=== PATIENT | male | born 1980 | race Caucasian/White ===

== ENCOUNTER 2018-08-11 12:42 | Emergency (ER) | payer MEDICAID, SELFPAY ==
[2018-08-11] VITALS (17 sets, daily range): BP systolic 130–204; BP diastolic 66–164; PULSE 72–109; RESP 10–33; TEMP 36.5–37.1; O2SAT 92–96
[2018-08-11] MEDS: LORazepam 2 MG/ML VIAL ×3 (12:45→13:06)
--- NOTE | 2018-08-11 12:45 | DI.RAD_ITS ---
SYMPTOMS/DIAGNOSIS: S/P FALL, ? ACUTE FRACTURE/DISEASE AP AND LATERAL CHEST: There are no prior comparison exams. The cardiac and mediastinal contours have a normal appearance. The lungs are well inflated and clear. No infiltrate, effusion or pneumothorax is seen. No rib or spine fracture is identified. IMPRESSION: Negative chest x-ray. PELVIS: There are no prior comparison exams. There are degenerative changes of both hips, left greater than right. There is spurring from the margins of the femoral head which could obscure a subcapital fracture. There is moderate joint space narrowing as well as acetabular spurring. There is mild spurring of the right acetabulum and right femoral head. IMPRESSION: Degenerative changes of both hips, left greater than right. No definite fracture is identified. If there is further clinical question, a CT could be performed.
--- NOTE | 2018-08-11 12:45 | DI.CT_ITS ---
SYMPTOMS/DIAGNOSIS: S/P FALL, SEIZURE, ? ACUTE CVA/MASS/BLEED NONCONTRAST HEAD CT: No intracranial hemorrhage, mass or infarct is seen. The ventricles are normal in size. There is mucosal thickening of the left frontal as well as ethmoid sinuses. There is some mucous retention at the floor of the right maxillary sinus. The mastoid air cells appear clear. IMPRESSION: Sinus disease. No acute intracranial abnormality. CT OF THE CERVICAL SPINE: There is no evidence of fracture the alignment is normal. There are degenerative disc changes. There is no prevertebral soft tissue swelling. The visualized portions of the lungs appear clear. IMPRESSION: Degenerative changes. No acute abnormality.
--- NOTE | 2018-08-11 12:48 | W.ED.GENAD ---
Discharge Plan Disposition Patient Disposition: AGAINST MEDICAL ADVICE Condition: Stable Discharge Details Chief Complaint: AMS/LOC Clinical Impression: Seizure disorder Primary Care Provider: Eugene Crain ED Provider: Renetta Mae Home Meds and New Rx's Prescriptions: Continued methadone 5 mg/5 mL Solution 125 mg PO DAILY AM RF: 0 gabapentin 600 mg Tablet 600 mg PO DAILY RF: 0 Discharge Instructions Instructions: Epilepsy (ED), Recurrent Seizures in Adults (ED) Additional Instructions: Drink plenty of fluids and get plenty of rest. Take your regular medications as directed. Call your primary care doctor tomorrow to schedule a follow-up appointment for reevaluation. Return immediately to the emergency department with any worsening or new concerning symptoms. Discharge Data Discharge Physician: Renetta Mae Medical Decision Making 38-year-old male with unknown medical history and questionable history of alcohol and drug use per coworker who presented for multiple seizures in the parking lot. Upon arrival of ED staff, patient was breathing but unresponsive. Patient shortly became alert and was able to ambulate with assistance out of the car and onto the wheelchair. Patient tracks with eyes but does not answer any questions or follow commands. Heart rate tachycardic 100s. Blood pressure hypertensive. Superficial abrasion noted to forehead. No other obvious trauma noted. Moving all extremities. Concern for alcohol withdrawal seizure, acute drug intoxication, brain mass, electrolyte abnormality. Patient is flailing around in room and removing his blood pressure cuff and will not remain still for IV. Patient given 1 mg of Ativan IM and still restless and moving around stretcher. Given another 1 mg Ativan IM. Will continue to attempt IV, labs, alcohol, UDS, EKG, chest x-ray, pelvis x-ray and CT head and cervical spine. 1300 -- Pt attempting to take off leads and removing BP cuff. He became more alert after 3rd dose ativan, and now refusing to stay. Patient is unable to state the year and does not appear to have capacity to make decisions. Discussed with patient that I will attempt to get senior systems analyst and restrain him, as it is not safe for him to leave. Patient is now agreeable to IV. 1445 --labs and imaging reviewed. White blood cell count 13. Normal electrolytes. Troponin negative. Urinalysis negative. Negative salicylates, acetaminophen, alcohol. UDS notes methadone and THC. CT head, C-spine, chest x-ray negative. Pelvis x-ray read as a questionable lucency subcapital region which could represent subcapital femoral neck fracture. Patient has no evidence of trauma on exam, full range of motion and no tenderness to palpation of hips and he was able to ambulate and transfer from the wheelchair so does not appear clinically consistent with a femoral neck fracture. Patient is now more awake and alert and able to answer more questions. He states he has been taking gabapentin for the last month for nerve pains in his legs related to previous fractures. He states he normally takes 600 mg of gabapentin 3 times a day. States he took an extra 600 mg today because he was feeling tired. He states he had a similar history of a seizure a few weeks ago after taking too much gabapentin for which he was seen and admitted to [facility] [place] [facility]. Will consult with [facility] neurology to discuss whether gabapentin could be the cause of his seizures. 1530 --girlfriend now present here and patient is requesting to leave. Discussed with patient that I have not yet spoken with [facility] neurology for recommendations. Patient is refusing to stay. Patient demonstrates capacity to make decisions. The risks of and disability due to a serious pathology were discussed and he understands and would still like to leave. AMA form signed. Patient is instructed to follow-up with the primary care doctor for reevaluation and to return here if worse. Able to obtain records from [facility] which noted that patient was admitted there on 07/20/2018 for seizure-like activity. Patient had stated at that time he taken more gabapentin than usual. The record had noted that patient has a history of right lower extremity neuropathy status post right tibial plateau fracture repair in 2014 and had been started on gabapentin for this. He had tested positive for cocaine at that time and thought the seizures could be in the context of cocaine use. He had been recommended to be transferred to [facility] for EEG monitoring but had refused. Medical Records Medical records reviewed: Yes I reviewed the patient's medical records. Imaging Data Radiologic Study: Radiologist's impression: XR Chest, 2 Views EXAM DATE/TIME: 08/11/2018 12:48 PM CLINICAL HISTORY: 38 years old, male; Injury or trauma; Fall; Initial encounter; Blunt trauma (contusions or hematomas); Additional info: S/P fall, seizure, R/O acute cva/mass/bleed TECHNIQUE: Imaging protocol: XR of the chest, 2 views. COMPARISON: No relevant prior studies available. FINDINGS: Lungs: Unremarkable. No consolidation. Pleural space: Unremarkable. No pleural effusion. No pneumothorax. Heart/Mediastinum: Unremarkable. No cardiomegaly. Bones/joints: Unremarkable. IMPRESSION: No acute findings. Radiologic Study #2: Radiologist's impression: XR Pelvis, 1 or 2 Views EXAM DATE/TIME: 08/11/2018 12:48 PM CLINICAL HISTORY: 38 years old, male; Injury or trauma; Fall; Initial encounter; Blunt trauma (contusions or hematomas); Right; Hip; Additional info: S/P fall, seizure, R/O acute cva/mass/bleed TECHNIQUE: Imaging protocol: XR pelvis, 1 or 2 views COMPARISON: No relevant prior studies available. FINDINGS: Bones/joints: Degenerative changes in both hips Subtle lucency the most subcapital region of the right hip. This could represent mild subcapital femoral neck fracture.. Soft tissues: Normal. IMPRESSION: Subtle lucency the most subcapital region of the right hip. This could represent mild subcapital femoral neck fracture.. Radiologic Study #3: Radiologist's impression: CT Head Without Contrast EXAM DATE/TIME: 08/11/2018 12:48 PM CLINICAL HISTORY: 38 years old, male; Signs and symptoms; Other: S/P fall, seizure, R/O acute cva/mass/bleed TECHNIQUE: Imaging protocol: Axial computed tomography images of the head without contrast. Coronal and sagittal reformatted images were created and reviewed. Radiation optimization: All CT scans at this facility use at least one of these dose optimization techniques: automated exposure control; mA and/or kV adjustment per patient size (includes targeted exams where dose is matched to clinical indication); or iterative reconstruction. COMPARISON: No relevant prior studies available. FINDINGS: Brain: Normal. No hemorrhage. Unremarkable white matter. No mass effect. Ventricles: Normal. No ventriculomegaly. Bones/joints: Discontinuities in the nasal bones may represent acute or chronic nasal fractures. Compression. Sinuses: Mucosal thickening in the maxillary sinuses and ethmoid sinuses and frontal sinuses may represent sinusitis. Mastoid air cells: Visualized mastoid air cells are well aerated. No mastoid effusion. Soft tissues: Unremarkable. IMPRESSION: Mucosal thickening in the maxillary sinuses and ethmoid sinuses and frontal sinuses may represent sinusitis. CT Cervical Spine Without Contrast EXAM DATE/TIME: 08/11/2018 12:48 PM CLINICAL HISTORY: 38 years old, male; Signs and symptoms; Other: S/P fall, seizure, R/O acute cva/mass/bleed TECHNIQUE: Imaging protocol: Axial computed tomography images of the cervical spine without contrast. Coronal and sagittal reformatted images were created and reviewed. Radiation optimization: All CT scans at this facility use at least one of these dose optimization techniques: automated exposure control; mA and/or kV adjustment per patient size (includes targeted exams where dose is matched to clinical indication); or iterative reconstruction. COMPARISON: No relevant prior studies available. FINDINGS: Vertebrae: No acute fracture of the cervical spine. No subluxation or dislocation of the cervical spine. Anterior osteophyte formation C5 and C6 Degenerative changes in the facets at multiple levels Degenerative changes at C1/C2 Discs/Spinal canal/Neural foramina: Posterior osteophyte formation C5-C7 Soft tissues: Unremarkable. Thyroid: The thyroid is unremarkable Lungs: Lung apices are normal. Other findings: Mucosal thickening in the maxillary sinuses may represent sinusitis IMPRESSION: 1. No acute fracture of the cervical spine. 2. No subluxation or dislocation of the cervical spine. ECG Data Attestation: I personally reviewed and interpreted this ECG (s) as follows: Interpretation: Rate of 80, sinus, no acute ST elevation or depression. QTc 471. QRS 96. HPI General Mode of arrival: ambulatory. Date/Time Provider Initiated Documentation: 08/11/18 12:44. Limitations to Documentation: altered mental status. Information obtained by: family (friend/coworker). HPI Narrative: Pt is a 38yo M who presented in the parking lot for multiple seizures. Coworker/friend who brought patient to the ED stated that he was standing outside and began seizing and suddenly dropped to the ground. He was able to wake up and get into a van and on the way here began seizing again. Coworker states that his first seizure he thinks lasted approximately 10 minutes, and the second seizure approximately 10 minutes as well. He denies any known alcohol or drug use today but states he has a previous history of this. Patient is unable to obtain history as he is agitated and appears postictal. Related Data Home Medications Medication Instructions Recorded Confirmed gabapentin 600 mg PO DAILY 08/11/18 08/11/18 methadone 125 mg PO DAILY AM 08/11/18 08/11/18 Allergies Allergy/AdvReac Type Severity Reaction Status Date / Time No Known Allergies Allergy Unverified 08/11/18 13:01 Review of Systems Review of Systems All systems reviewed & are unremarkable except as noted in HPI and below PFSH Medical History Seizure (Acute) Surgical History History of surgery on extremity (Acute) Social History Smoking/Tobacco Use Status: Current every day Alcohol Intake: former Details: Last use 8 months ago Substance use type: former substance user, crack/cocaine, heroin and IV drugs Details: last use 2016 Exam Const General: combative and other (agitated ) HENMT Head: normal to inspection Face and sinus: normal facial exam Eyes General: appearance normal, both eyes and all related structures Pupils: PERRL EOM: EOM intact bilaterally Neck Neck: normal visual inspection and No submandibular swelling Lymphatic: no lymphadenopathy noted Chest Chest: normal inspection of the chest and no tenderness Resp Effort & Inspection: normal respiratory effort and able to speak in complete sentences Auscultation: clear to auscultation bilaterally Cardio Rate: regular rate Rhythm: regular rhythm GI Inspection: normal to inspection Palpation: soft, not firm, not rigid and nontender Auscultation: normal bowel sounds Back/Spine/Pelvis Thoracic/Lumbar Spine: thoracic and lumbar spine normal to inspection Pelvis: no pain with anterior-posterior compression Skin General skin exam: no rashes or lesions noted Neuro General: awake Speech: speech normal Motor: muscle tone normal throughout Sensory Exam: no sensory deficits noted Extrem General: normal to inspection, full ROM and no edema Psych Appearance: grossly normal Mental Status: mental status grossly normal Speech and Movement: speech and movement normal Affect: normal affect
--- NOTE | 2018-08-11 12:52 | ED.GENADUL_ITS ---
Discharge Plan Disposition Patient Disposition: AGAINST MEDICAL ADVICE Condition: Stable Discharge Details Chief Complaint: AMS/LOC Clinical Impression: Seizure disorder Primary Care Provider: Eugene Crain ED Provider: Renetta Mae Home Meds and New Rx's Prescriptions: Continued methadone 5 mg/5 mL Solution 125 mg PO DAILY AM RF: 0 gabapentin 600 mg Tablet 600 mg PO DAILY RF: 0 Discharge Instructions Instructions: Epilepsy (ED), Recurrent Seizures in Adults (ED) Additional Instructions: Drink plenty of fluids and get plenty of rest. Take your regular medications as directed. Call your primary care doctor tomorrow to schedule a follow-up appointment for reevaluation. Return immediately to the emergency department with any worsening or new concerning symptoms. Discharge Data Discharge Physician: Renetta Mae Medical Decision Making 38-year-old male with unknown medical history and questionable history of alcohol and drug use per coworker who presented for multiple seizures in the parking lot. Upon arrival of ED staff, patient was breathing but unresponsive. Patient shortly became alert and was able to ambulate with assistance out of the car and onto the wheelchair. Patient tracks with eyes but does not answer any questions or follow commands. Heart rate tachycardic 100s. Blood pressure hypertensive. Superficial abrasion noted to forehead. No other obvious trauma noted. Moving all extremities. Concern for alcohol withdrawal seizure, acute drug intoxication, brain mass, electrolyte abnormality. Patient is flailing around in room and removing his blood pressure cuff and will not remain still for IV. Patient given 1 mg of Ativan IM and still restless and moving around stretcher. Given another 1 mg Ativan IM. Will continue to attempt IV, labs, alcohol, UDS, EKG, chest x-ray, pelvis x-ray and CT head and cervical spine. 1300 -- Pt attempting to take off leads and removing BP cuff. He became more alert after 3rd dose ativan, and now refusing to stay. Patient is unable to state the year and does not appear to have capacity to make decisions. Discussed with patient that I will attempt to get nursing home manager and restrain him, as it is not safe for him to leave. Patient is now agreeable to IV. 1445 --labs and imaging reviewed. White blood cell count 13. Normal electrolytes. Troponin negative. Urinalysis negative. Negative salicylates, acetaminophen, alcohol. UDS notes methadone and THC. CT head, C-spine, chest x-ray negative. Pelvis x-ray read as a questionable lucency subcapital region which could represent subcapital femoral neck fracture. Patient has no evidence of trauma on exam, full range of motion and no tenderness to palpation of hips and he was able to ambulate and transfer from the wheelchair so does not appear clinically consistent with a femoral neck fracture. Patient is now more awake and alert and able to answer more questions. He states he has been taking gabapentin for the last month for nerve pains in his legs related to previous fractures. He states he normally takes 600 mg of gabapentin 3 times a day. States he took an extra 600 mg today because he was feeling tired. He states he had a similar history of a seizure a few weeks ago after taking too much gabapentin for which he was seen and admitted to [facility]. Will consult with [facility] neurology to discuss whether gabapentin could be the cause of his seizures. 1530 --girlfriend now present here and patient is requesting to leave. Discussed with patient that I have not yet spoken with [facility] neurology for recommendations. Patient is refusing to stay. Patient demonstrates capacity to make decisions. The risks of and disability due to a serious pathology were discussed and he understands and would still like to leave. AMA form signed. Patient is instructed to follow-up with the primary care doctor for reevaluation and to return here if worse. Able to obtain records from [facility] which noted that patient was admitted there on 07/20/2018 for seizure-like activity. Patient had stated at that time he taken more gabapentin than usual. The record had noted that patient has a history of right lower extremity neuropathy status post right tibial plateau fracture repair in 2014 and had been started on gabapentin for this. He had tested positive for cocaine at that time and thought the seizures could be in the context of cocaine use. He had been recommended to be transferred to [facility] for EEG monitoring but had refused. Medical Records Medical records reviewed: Yes I reviewed the patient's medical records. Imaging Data Radiologic Study: Radiologist's impression: XR Chest, 2 Views EXAM DATE/TIME: 08/11/2018 12:48 PM CLINICAL HISTORY: 38 years old, male; Injury or trauma; Fall; Initial encounter; Blunt trauma (contusions or hematomas); Additional info: S/P fall, seizure, R/O acute cva/mass/bleed TECHNIQUE: Imaging protocol: XR of the chest, 2 views. COMPARISON: No relevant prior studies available. FINDINGS: Lungs: Unremarkable. No consolidation. Pleural space: Unremarkable. No pleural effusion. No pneumothorax. Heart/Mediastinum: Unremarkable. No cardiomegaly. Bones/joints: Unremarkable. IMPRESSION: No acute findings. Radiologic Study #2: Radiologist's impression: XR Pelvis, 1 or 2 Views EXAM DATE/TIME: 08/11/2018 12:48 PM CLINICAL HISTORY: 38 years old, male; Injury or trauma; Fall; Initial encounter; Blunt trauma (contusions or hematomas); Right; Hip; Additional info: S/P fall, seizure, R/O acute cva/mass/bleed TECHNIQUE: Imaging protocol: XR pelvis, 1 or 2 views COMPARISON: No relevant prior studies available. FINDINGS: Bones/joints: Degenerative changes in both hips Subtle lucency the most subcapital region of the right hip. This could represent mild subcapital femoral neck fracture.. Soft tissues: Normal. IMPRESSION: Subtle lucency the most subcapital region of the right hip. This could represent mild subcapital femoral neck fracture.. Radiologic Study #3: Radiologist's impression: CT Head Without Contrast EXAM DATE/TIME: 08/11/2018 12:48 PM CLINICAL HISTORY: 38 years old, male; Signs and symptoms; Other: S/P fall, seizure, R/O acute cva/mass/bleed TECHNIQUE: Imaging protocol: Axial computed tomography images of the head without contrast. Coronal and sagittal reformatted images were created and reviewed. Radiation optimization: All CT scans at this facility use at least one of these dose optimization techniques: automated exposure control; mA and/or kV adjustment per patient size (includes targeted exams where dose is matched to clinical indication); or iterative reconstruction. COMPARISON: No relevant prior studies available. FINDINGS: Brain: Normal. No hemorrhage. Unremarkable white matter. No mass effect. Ventricles: Normal. No ventriculomegaly. Bones/joints: Discontinuities in the nasal bones may represent acute or chronic nasal fractures. Compression. Sinuses: Mucosal thickening in the maxillary sinuses and ethmoid sinuses and frontal sinuses may represent sinusitis. Mastoid air cells: Visualized mastoid air cells are well aerated. No mastoid effusion. Soft tissues: Unremarkable. IMPRESSION: Mucosal thickening in the maxillary sinuses and ethmoid sinuses and frontal sinuses may represent sinusitis. CT Cervical Spine Without Contrast EXAM DATE/TIME: 08/11/2018 12:48 PM CLINICAL HISTORY: 38 years old, male; Signs and symptoms; Other: S/P fall, seizure, R/O acute cva/mass/bleed TECHNIQUE: Imaging protocol: Axial computed tomography images of the cervical spine without contrast. Coronal and sagittal reformatted images were created and reviewed. Radiation optimization: All CT scans at this facility use at least one of these dose optimization techniques: automated exposure control; mA and/or kV adjustment per patient size (includes targeted exams where dose is matched to clinical indication); or iterative reconstruction. COMPARISON: No relevant prior studies available. FINDINGS: Vertebrae: No acute fracture of the cervical spine. No subluxation or dislocation of the cervical spine. Anterior osteophyte formation C5 and C6 Degenerative changes in the facets at multiple levels Degenerative changes at C1/C2 Discs/Spinal canal/Neural foramina: Posterior osteophyte formation C5-C7 Soft tissues: Unremarkable. Thyroid: The thyroid is unremarkable Lungs: Lung apices are normal. Other findings: Mucosal thickening in the maxillary sinuses may represent sinusitis IMPRESSION: 1. No acute fracture of the cervical spine. 2. No subluxation or dislocation of the cervical spine. ECG Data Attestation: I personally reviewed and interpreted this ECG (s) as follows: Interpretation: Rate of 80, sinus, no acute ST elevation or depression. QTc 471. QRS 96. HPI General Mode of arrival: ambulatory . Date/Time Provider Initiated Documentation: 08/11/18 12:44 . Limitations to Documentation: altered mental status . Information obtained by: family (friend/coworker) . HPI Narrative: Pt is a 38yo M who presented in the parking lot for multiple seizures. Coworker/friend who brought patient to the ED stated that he was standing outside and began seizing and suddenly dropped to the ground. He was able to wake up and get into a van and on the way here began seizing again. Coworker states that his first seizure he thinks lasted approximately 10 minutes, and the second seizure approximately 10 minutes as well. He denies any known alcohol or drug use today but states he has a previous history of this. Patient is unable to obtain history as he is agitated and appears postictal. Related Data Home Medications Medication Instructions Recorded Confirmed gabapentin 600 mg PO DAILY 08/11/18 08/11/18 methadone 125 mg PO DAILY AM 08/11/18 08/11/18 Allergies Allergy/AdvReac Type Severity Reaction Status Date / Time No Known Allergies Allergy Unverified 08/11/18 13:01 Review of Systems Review of Systems All systems reviewed & are unremarkable except as noted in HPI and below PFSH Medical History Seizure (Acute) Surgical History History of surgery on extremity (Acute) Social History Smoking/Tobacco Use Status: Current every day Alcohol Intake: former Details: Last use 8 months ago Substance use type: former substance user, crack/cocaine, heroin and IV drugs Details: last use 2016 Exam Const General: combative and other (agitated ) HENMT Head: normal to inspection Face and sinus: normal facial exam Eyes General: appearance normal, both eyes and all related structures Pupils: PERRL EOM: EOM intact bilaterally Neck Neck: normal visual inspection and No submandibular swelling Lymphatic: no lymphadenopathy noted Chest Chest: normal inspection of the chest and no tenderness Resp Effort & Inspection: normal respiratory effort and able to speak in complete sentences Auscultation: clear to auscultation bilaterally Cardio Rate: regular rate Rhythm: regular rhythm GI Inspection: normal to inspection Palpation: soft, not firm, not rigid and nontender Auscultation: normal bowel sounds Back/Spine/Pelvis Thoracic/Lumbar Spine: thoracic and lumbar spine normal to inspection Pelvis: no pain with anterior-posterior compression Skin General skin exam: no rashes or lesions noted Neuro General: awake Speech: speech normal Motor: muscle tone normal throughout Sensory Exam: no sensory deficits noted Extrem General: normal to inspection, full ROM and no edema Psych Appearance: grossly normal Mental Status: mental status grossly normal Speech and Movement: speech and movement normal Affect: normal affect
--- NOTE | 2018-08-11 13:09 | NUR.NOTE ---
2 mg of ativan given by yunior romero from a ER department override. 1 mg given pulled for PT
[2018-08-11 13:33] LABS: Abs Immature Grans 0.02 k/cumm (0.0-0.09); Absolute Basophil Count 0.03 k/cumm (0.0-0.2); Absolute Eosinophil Count 0.08 k/cumm (0.0-0.7); Absolute Lymphocyte Count 1.54 k/cumm (1.2-3.4); Absolute Monocyte Count 0.64 k/cumm (0.11-0.7); Absolute Neutrophil Count 11.66 k/cumm (1.2-6.7); Basophils % 0.2; Eosinophils % 0.6; HCT 39.8 % (40.0-50.0); HGB 13.6 g/dL (13.5-17.5); Immature Grans % 0.1; Mean Corp. HGB Concentration 34.2 g/dL (32.0-36.0); Mean Corpuscular Volume 90.7 fL (80-95); Mean Platelet Volume 10.7 fL (8.0-11.0); Monocytes % 4.6; Neutrophils % 83.5; Platelet Count 179 x1000/uL (130-400); RBC 4.39 m/cumm (4.50-6.00); RBC Distribution Width 13.6 % (11.8-14.1); White Blood Cell Count 13.97 k/cumm (4.4-10.8)
[2018-08-11 13:47] LABS: ALT 43 U/L (12-78); AST 40 U/L (15-37); Albumin 3.5 g/dL (3.4-5.0); Alkaline Phosphatase 87 U/L (46-116); Anion Gap 12.2 mmol/L (3-11); BUN 15 mg/dL (7-18); Bilirubin, Total 0.2 mg/dL (0.2-1.0); CO2 22.8 mmol/L (21.0-32.0); Calcium 8.5 mg/dL (8.5-10.1); Chloride 102 mmol/L (98-107); Glucose 104 mg/dL (70-100); Magnesium 2.4 mg/dL (1.8-2.4); Potassium 3.5 mmol/L (3.5-5.1); Sodium 137 mmol/L (136-145); Total Protein 7.5 g/dL (6.4-8.2); Troponin I 0.02 ng/mL (0.00-0.06)
[2018-08-11] MEDS: Normal Saline 1,000 ML 1000 ML IV (13:58)
[2018-08-11 14:02] LABS: ETHANOL BLOOD < 3.0 mg/dL (<3)
[2018-08-11 14:04] LABS: Acetaminophen < 2 ug/mL (10-30); Salicylate 3.8 mg/dL (2.8-20.0)
--- NOTE | 2018-08-11 14:27 | DI.VRAD_ITS ---
EXAM: XR Chest, 2 Views EXAM DATE/TIME: 08/11/2018 12:48 PM CLINICAL HISTORY: 38 years old, male; Injury or trauma; Fall; Initial encounter; Blunt trauma (contusions or hematomas); Additional info: S/P fall, seizure, R/O acute cva/mass/bleed TECHNIQUE: Imaging protocol: XR of the chest, 2 views. COMPARISON: No relevant prior studies available. FINDINGS: Lungs: Unremarkable. No consolidation. Pleural space: Unremarkable. No pleural effusion. No pneumothorax. Heart/Mediastinum: Unremarkable. No cardiomegaly. Bones/joints: Unremarkable. IMPRESSION: No acute findings. Dictated and Authenticated by: Vinny John MD. Ordering:NOE Jackson MD
--- NOTE | 2018-08-11 14:28 | DI.VRAD_ITS ---
EXAM: XR Pelvis, 1 or 2 Views EXAM DATE/TIME: 08/11/2018 12:48 PM CLINICAL HISTORY: 38 years old, male; Injury or trauma; Fall; Initial encounter; Blunt trauma (contusions or hematomas); Right; Hip; Additional info: S/P fall, seizure, R/O acute cva/mass/bleed TECHNIQUE: Imaging protocol: XR pelvis, 1 or 2 views COMPARISON: No relevant prior studies available. FINDINGS: Bones/joints: Degenerative changes in both hips Subtle lucency the most subcapital region of the right hip. This could represent mild subcapital femoral neck fracture.. Soft tissues: Normal. IMPRESSION: Subtle lucency the most subcapital region of the right hip. This could represent mild subcapital femoral neck fracture.. Dictated and Authenticated by: Vinny John MD. Ordering:NOE Jackson MD
--- NOTE | 2018-08-11 14:32 | DI.VRAD_ITS ---
EXAM: CT Head Without Contrast EXAM DATE/TIME: 08/11/2018 12:48 PM CLINICAL HISTORY: 38 years old, male; Signs and symptoms; Other: S/P fall, seizure, R/O acute cva/mass/bleed TECHNIQUE: Imaging protocol: Axial computed tomography images of the head without contrast. Coronal and sagittal reformatted images were created and reviewed. Radiation optimization: All CT scans at this facility use at least one of these dose optimization techniques: automated exposure control; mA and/or kV adjustment per patient size (includes targeted exams where dose is matched to clinical indication); or iterative reconstruction. COMPARISON: No relevant prior studies available. FINDINGS: Brain: Normal. No hemorrhage. Unremarkable white matter. No mass effect. Ventricles: Normal. No ventriculomegaly. Bones/joints: Discontinuities in the nasal bones may represent acute or chronic nasal fractures. Compression. Sinuses: Mucosal thickening in the maxillary sinuses and ethmoid sinuses and frontal sinuses may represent sinusitis. Mastoid air cells: Visualized mastoid air cells are well aerated. No mastoid effusion. Soft tissues: Unremarkable. IMPRESSION: Mucosal thickening in the maxillary sinuses and ethmoid sinuses and frontal sinuses may represent sinusitis. EXAM: CT Cervical Spine Without Contrast EXAM DATE/TIME: 08/11/2018 12:48 PM CLINICAL HISTORY: 38 years old, male; Signs and symptoms; Other: S/P fall, seizure, R/O acute cva/mass/bleed TECHNIQUE: Imaging protocol: Axial computed tomography images of the cervical spine without contrast. Coronal and sagittal reformatted images were created and reviewed. Radiation optimization: All CT scans at this facility use at least one of these dose optimization techniques: automated exposure control; mA and/or kV adjustment per patient size (includes targeted exams where dose is matched to clinical indication); or iterative reconstruction. COMPARISON: No relevant prior studies available. FINDINGS: Vertebrae: No acute fracture of the cervical spine. No subluxation or dislocation of the cervical spine. Anterior osteophyte formation C5 and C6 Degenerative changes in the facets at multiple levels Degenerative changes at C1/C2 Discs/Spinal canal/Neural foramina: Posterior osteophyte formation C5-C7 Soft tissues: Unremarkable. Thyroid: The thyroid is unremarkable Lungs: Lung apices are normal. Other findings: Mucosal thickening in the maxillary sinuses may represent sinusitis IMPRESSION: 1. No acute fracture of the cervical spine. 2. No subluxation or dislocation of the cervical spine. Dictated and Authenticated by: Vinny John MD. Ordering:NOE Jackson MD
--- NOTE | 2018-08-11 14:43 | NUR.NOTE ---
pt has become alert and oriented x3. he has called his brother and plans to get a ride home . he is drinking gingerale and still has his IVF infusing. Nursing Note:
[2018-08-11 14:45] LABS: Bilirubin Negative (Negative); Blood Negative (Negative); Clarity Clear; Glucose Negative (Negative); Ketones Negative (Negative); Leukocyte Esterase Negative (Negative); Nitrite Negative (Negative); Specific Gravity 1.025 (1.005-1.025); Urobilinogen 0.2 EU/dL (Up TO 0.2); pH 5.5 (5-8)
[2018-08-11 14:53] LABS: Bacteria Few HPF (Negative); C & S Indicated? No; Casts Negative LPF (Negative); Crystals Negative HPF (Negative); Epithelial Cells Rare HPF (Negative); Mucus Trace (Negative); RBC 0-2 (0-2); WBC 0-2 HPF (0-5)
[2018-08-11 14:55] LABS: *AMPHETAMINES SCREEN URINE Negative (Negative); *BARBITURATES SCREEN URINE Negative (Negative); *BENZODIAZEPINES SCREEN URINE Negative (Negative); Cannabinoids THC POSITIVE (Negative); Cocaine Screen,Urine Negative (Negative); METHADONE URINE SCREEN POSITIVE (Negative); OPIATES URINE SCREEN Negative (Negative)
[2018-08-11 14:56] LABS: Tricyclic Antidepressants Negative (Negative)
--- NOTE | 2018-08-11 15:19 | NUR.NOTE ---
pt has aggreed to remain in his room untill his brother arrives from [place] to get him . he left me leave his IV in tho complete the fluid that hes run slowly due to him bending his arm while he sleeps . he is partialy dressed and is resting on the stretcher . Nursing Note:
== END 2018-08-11 15:43 | disposition left against medical advice (07) ==
PROVIDERS: Emergency Provider Physician Assistant; PCP Family Medicine
DX: R56.9 Unspecified convulsions (principal); R00.0 Tachycardia, unspecified
CPT/HCPCS: 36415; 80053; 80307; 93005; 96361; 96374; 96375; 99285; 70450; 71046; 72125; 72170; 80320; 80329; 81003; 81015; 83735; 84484; 85025; 93010; J2060; L0172

== ENCOUNTER 2024-08-18 03:42 | Inpatient (IN) | payer MEDICAID, SELFPAY ==
[2024-08-18] VITALS (231 sets, daily range): BP systolic 73–161; BP diastolic 27–94; PULSE 56–126; RESP 5–25; TEMP 35.8–37.7; O2SAT 63–100
--- NOTE | 2024-08-18 | DI.RAD_ITS ---
Exam(s) XR PORTABLE CHEST AP EXAM: XR PORTABLE CHEST AP CLINICAL HISTORY: NG tube TECHNIQUE: 2D digital imaging was performed. COMPARISON: CT CT CHEST/ABD/PEL W from 08/18/2024 FINDINGS: The nasogastric tube has been advanced with the side port hole within the stomach. A right central venous line has been inserted with the tip at the lower SVC. LUNGS: Clear. No pleural abnormality seen. HEART: Normal size. AORTA: Normal diameter. BONES: Unremarkable for age. Soft tissues: Unremarkable. IMPRESSION: Status post placement of central line. Nasogastric tube has been advanced into the stomach. The preliminary [facility] report was reviewed. DATA REPOSITORY: RADIATION DOSE DELIVERED:
--- NOTE | 2024-08-18 03:30 | RT.EKG_ITS ---
APPROVED REPORT Exam: Resting ECG Reason for Exam: OVERDOSE Patient Location: E HR:110 bpm ECG Measurements Heart Rate 110 AXIS ME 146 P 138 QRSd 139 QRS 99 QT 452 T 48 QTc 613 Conclusion Sinus or ectopic atrial tachycardia...P axis (-45,135), rate> 99 Nonspecific intraventricular conduction delay...QRSd >115mS, not LBBB/RBBB ST elev, probable normal early repol pattern...ST elevation, age<55 Prolonged QT interval...QTc >500mS I have reviewed and interpreted ECG and agree with software generated interpretation.
--- NOTE | 2024-08-18 03:45 | DI.CT_ITS ---
Exam(s) CT HEAD WO EXAM: CT HEAD WO CLINICAL HISTORY: drug OD. TECHNIQUE: Imaging Protocol: Axial computed tomography images with coronal and sagittal reformatted images were created and reviewed COMPARISON: CT CT HEAD CERVICAL SPINE WO from 08/11/2018 FINDINGS: Ventricles and Extra axial spaces: Normal in size and morphology for the patient's age. Hemorrhage: None. Cerebral parenchyma: No evidence of acute infarct or mass. Midline shift: None. Brainstem/Cerebellum: Normal. Calvarium: Normal. Visualized Paranasal sinuses:Some mucosal thickening within ethmoid sinuses and nasal cavity. Mastoids: Clear. Soft Tissues: Unremarkable. ORBITS: Unremarkable. PITUITARY: Not enlarged. IMPRESSION: No acute intracranial process. The preliminary [facility] report was reviewed. RADIATION DOSE DELIVERED: Total DLP DATA REPOSITORY: All CT scans at this facility are submitted to the National Radiology Data Registry (NRDR) Dose Index Registry (DIR) with the [employer] (A[employer]). RADIATION OPTIMIZATION: All CT scans at this facility use at least one of these dose optimization te chniques: automated exposure control; mA and/or kV adjustment per patient size (includes targeted exa ms where dose is matched to clinical indication); or iterative reconstruction.
--- NOTE | 2024-08-18 03:45 | DI.RAD_ITS ---
Exam(s) XR PORTABLE CHEST AP POST LINE EXAM: XR PORTABLE CHEST AP POST LINE CLINICAL HISTORY: intibation TECHNIQUE: 2D digital imaging was performed. COMPARISON: CR XR CHEST 2V PA LATERAL from 08/11/2018 FINDINGS: An endotracheal tube has been inserted with the tip lying above the level of the aortic arch. LUNGS: Clear. No pleural abnormality seen. HEART: Normal size. AORTA: Normal diameter. BONES: Unremarkable for age. Soft tissues: Unremarkable. IMPRESSION: Satisfactory placement of endotracheal tube. The preliminary [facility] report was reviewed. DATA REPOSITORY: RADIATION DOSE DELIVERED:
--- NOTE | 2024-08-18 03:45 | DI.CT_ITS ---
Exam(s) CT CHEST/ABD/PEL W EXAM: CT CHEST/ABD/PEL W CLINICAL HISTORY: OD, body packing, swallowed glass?. TECHNIQUE: Imaging Protocol: Axial computed tomography images with coronal and sagittal reformatted images were created and reviewed. Computer aided detection (CAD) was utilized. CONTRAST MATERIAL: Intravenous: Omnipaque 350 Contrast volume:100 ml Oral: / no COMPARISON: No exams were available for comparison FINDINGS: CHEST: Mildly limited by artifact from metallic densities outside of the patient is well as arm positioning . Pulmonary parenchyma: Mild emphysematous changes at the lung apices. Patchy infiltrate versus mild s carring at right apex. Reticular infiltrates noted in the right middle and both lower lobes, infecti ous versus inflammatory. No consolidation. No dominant measurable mass. Tracheobronchial tree: Endotracheal tube in place. No bronchiectasis. No mucous plugging.No bronchi al wall thickening. Pleura: No effusion or pneumothorax. Mediastinum: Fluid in esophagus. Pulmonary arteries: No visible emboli. Cardiovascular: No pericardial effusion. Thoracic aorta non-dilated. Bones: Hemangioma in the T10 and T11 vertebral bodies. Mild compression fracture of the superior endp late of T5 appears old. Slight anterior wedging of the T9 vertebral body. Soft tissues: Unremarkable. ABDOMEN and PELVIS: Liver: Normal density. No suspicious mass. Gallbladder and biliary tract: No evidence of stones or wall thickening. No biliary dilatation. Pancreas: Multiple pancreatic calcifications. Pancreas is mildly atrophic. At 2.1 centimeter cyst i n the head of the pancreas, likely pseudocyst. No acute inflammatory process. Spleen: Normal. Kidneys: Normal size, contour and axis. No radiodense stones. No obstructive uropathy. No suspicious masses seen. Adrenal glands: No masses seen. Aorta: Abdominal portion non-dilated. Lymph nodes: Within normal limits. Soft tissues: Unremarkable. Bladder: Woo catheter is decompressing the urinary bladder. Bowel: The stomach contains a moderate quantity of fluid with air-fluid level. No gastric wall thick ening. There is an area of increased density within the fluid in the stomach which may represent ing ested foreign body. No small-bowel obstruction or bowel wall thickening. Increased quantity of stool . Peritoneal cavity: No ascites. No focal collection. No mesenteric inflammatory response. No free ai r. Bones: Degenerative changes at L5-S1 and in within both hips. Reproductive organs: Unremarkable for age. IMPRESSION: Reticulonodular densities in the lungs, infectious versus inflammatory. Clinical correlation recomme nded. Fluid within stomach additional densities may represent destined foreign body. No evidence of gastri c wall thickening or small bowel obstruction. Large quantity of stool. The preliminary [facility] report was reviewed. RADIATION DOSE DELIVERED: Total DLP DATA REPOSITORY: All CT scans at this facility are submitted to the National Radiology Data Registry (NRDR) Dose Index Registry (DIR) with the [employer] (ACR). RADIATION OPTIMIZATION: All CT scans at this facility use at least one of these dose optimization te chniques: automated exposure control; mA and/or kV adjustment per patient size (includes targeted exa ms where dose is matched to clinical indication); or iterative reconstruction.
[2024-08-18] MEDS: PROPOFOL 1,000 MG/100 ML BTL 20.64 MG IVPB ×3 (03:52→13:12)
[2024-08-18] MEDS: Rocuronium 50 MG/5 ML SYR (03:52)
[2024-08-18] MEDS: Etomidate 20 MG/10 ML VIAL (03:52)
[2024-08-18] MEDS: Lactated Ringers 1,000 ML 1000 ML IV ×2 (03:55→04:04)
[2024-08-18] MEDS: Norepinephrine in D5W 8 MG/250 ML BAG 5.625 MG IV (03:59)
[2024-08-18 04:11] LABS: Abs Immature Grans 0.03 10^3/uL (0.0-0.06); HCT 47.9 % (40.0-50.0); MCH 26.7 pg (27.0-33.0); MCHC 29.2 % (32.0-36.0); MCV 91 fL (80-95); MPV 12.1 fL (8.0-11.0); RBC 5.25 10^6/uL (4.36-5.78); RDW 14.6 % (11.8-14.1); RDW-SD 49.1 fL; WBC 9.14 10^3/uL (4.4-10.8)
--- NOTE | 2024-08-18 04:14 | DI.VRAD_ITS ---
PROCEDURE INFORMATION: Exam: XR Chest Exam date and time: 08/18/2024 4:08 AM Age: 44 years old Clinical indication: Device placement; Other: S/P intubation TECHNIQUE: Imaging protocol: Radiologic exam of the chest. Views: 1 view. COMPARISON: CR XR CHEST 2V PA LATERAL 08/11/2018 1:44 PM FINDINGS: Tubes, catheters and devices: Endotracheal tube terminates approximately 3.5 cm above the radha. Lungs: No focal consolidation seen. Pleural spaces: No large pleural effusion seen. Heart/Mediastinum: No cardiomegaly. Bones/joints: No acute abnormality. IMPRESSION: No acute findings to explain reported symptoms. Dictated and Authenticated by: Adriana Whaley MD. Orderin Niraj Magallanes MD
[2024-08-18] MEDS: Normal Saline - Diluent 50 ML VIAL IJ (04:15)
[2024-08-18] MEDS: Normal Saline Flush 10 ML SYR IVP ×3 (04:16→20:17)
[2024-08-18 04:25] LABS: INR 1.1 (0.9-1.1); PTT Activated 31.9 sec (20.6-30.2); Prothrombin Time 10.6 sec (9.1-11.1)
[2024-08-18 04:34] LABS: Bilirubin Negative (Negative); Blood Negative (Negative); Clarity Clear (Clear); Glucose Negative (Negative); Ketones Negative (Negative); Leukocyte Esterase Negative (Negative); Nitrite Negative (Negative); Specific Gravity 1.025 (1.005-1.025); Urobilinogen 0.2 mg/dL (Up to 0.2); pH 5.5 (5-8)
[2024-08-18 04:47] LABS: ALT 23 U/L (16-63); AST 30 U/L (15-37); Albumin 3.6 g/dL (3.4-5.0); Alkaline Phosphatase 89 U/L (46-116); Anion Gap 18.6 mmol/L (3-11); BUN 21 mg/dL (7-18); Bilirubin, Total 0.3 mg/dL (0.2-1.0); CO2 22.4 mmol/L (21.0-32.0); CREATININE 1.3 mg/dL (0.70-1.30); Calcium 9.6 mg/dL (8.5-10.1); Chloride 101 mmol/L (98-107); Estimated GFR 70.34 (mL/min/1.73m2); Glucose 154 mg/dL (74-106); Potassium 4.1 mmol/L (3.5-5.1); Sodium 142 mmol/L (136-145); TSH (W/Ref FT4) 9.67 uIU/mL (0.36-3.74); Total Protein 8.9 g/dL (6.4-8.2)
[2024-08-18 04:49] LABS: BE -5 mmol/L (-2-3); HCO3 22 mmol/L (22-26); pCO2 42 mmHg (35-45); pH 7.32 (7.35-7.45); pO2 85 mmHg (80-105); sO2 96 % (95-98); tCO2 20 mmol/L (23-27)
--- NOTE | 2024-08-18 04:49 | ED.GENADUL_ITS ---
Discharge Plan Disposition Patient Disposition: Admit to [facility] Discharge Details Admit Date/Time: 08/18/24 05:52 Admit Provider: Epi Beck Attending Provider: Epi Beck Primary Care Provider: Amirah Vazquez ED Provider: Elpidio Healy Discharge Data Discharge Date/Time-TO BE ENTERED AT DEPARTURE: 08/18/24 06:46 HPI General Date/Time Provider Initiated Documentation: 08/18/24 03:56 . HPI Narrative: This is a 44-year-old male with a past medical history of hepatitis C, IV drug use, previous methadone use, alcohol use, who presents today from senior living for evaluation of overdose. Patient was brought into senior living for intake, he was scanned and found to be body packing. He was then sent to an isolation room, and shortly thereafter was found eating/chewing one of the components of the body packing. Security services state that whenever he was chewing broke in his mouth and cause bleeding. He told services that it was fentanyl and cocaine, and then almost immediately became unresponsive and started having atypical movements. EMS was called and upon their arrival the patient was unresponsive with fixed and dilated pupils. They were unable to gain IV access and the patient was brought to the ER immediately. Patient gives no additional historical components. Related Data Home Medications ?Medication ?Instructions ?Recorded ?Confirmed gabapentin 600 mg tablet 600 mg PO DAILY 08/11/18 08/25/24 methadone 5 mg/5 mL oral solution 125 mg PO DAILY AM 08/11/18 08/21/24 diphenhydramine HCl 25 mg capsule 25 mg PO BID 7 days #14 caps 08/25/24 (Benadryl) potassium chloride 20 mEq 20 meq PO BID@0800,1700 #20 tabs 08/25/24 tablet,extended release(part/cryst) (Klor-Con M) Previous Rx's ?Medication ?Instructions ?Recorded diphenhydramine HCl 25 mg capsule 25 mg PO BID 7 days #14 caps 08/25/24 (Benadryl) potassium chloride 20 mEq 20 meq PO BID@0800,1700 #20 tabs 08/25/24 tablet,extended release(part/cryst) (Klor-Con M) Allergies Allergy/AdvReac Type Severity Reaction Status Date / Time No Known Allergies Allergy Unverified 08/11/18 13:01 General Stated Complaint: OD/Poison TRISTAN: 1 Exam Narrative Exam Narrative: 1.Const: Well-nourished, Well-developed, appearing stated age 2.Eyes: Pupils are dilated, right pupil demonstrates atypical asymmetry with a incomplete lower elwha of the right pupil. Pupils are round 3 mm. 3.ENT: Atraumatic external nose and ears. Moist MM. Neck: Symmetric, trachea midline, No thyromegaly. Blood is noted in the patient's mouth. Poor dentition. 4.CVS: +S1/S2, Peripheral pulses 2+ and equal in all extremities. Poor capillary refill, extremities are somewhat cyanotic 5.RESP: Labored breathing, agonal respirations. 6.GI: Soft, Nontender/Nondistended, No hepatosplenomegaly. No guarding or rebound. 7.MSK: Normocephalic/Atraumatic, Extremities w/o deformity or ttp No cyanosis or clubbing, tensed movement of extremities and jerking and twitching fashion. 8.Skin: Warm, Dry. Multiple small ulcerated lesions. 9.Neuro: Notably altered, twitching and jerking. Clenched jaw. Blood in the mouth. Unresponsive to questions and stimulation. 10.Psych: (AAO) x0 Course Vital Signs Vital signs: Vital Signs Pulse 121 H 08/18/24 03:57 Respiratory Rate 5 L 08/18/24 03:57 Blood Pressure 73/27 L 08/18/24 03:57 Pulse Oximetry 66 L 08/18/24 03:57 Pulse 121 H 08/18/24 03:57 Respiratory Rate 5 L 08/18/24 03:57 Blood Pressure 73/27 L 08/18/24 03:57 Blood Pressure Position Supine 08/18/24 03:57 Pulse Oximetry 66 L 08/18/24 03:57 Oxygen Delivery Method Non-Rebreather 08/18/24 03:57 End Tidal Co2 15 08/18/24 03:57 Lab/Test Results Lab/Test Results: Laboratory Tests Range/Units 08/18/24 08/18/24 04:02 04:13 PT (9.1-11.1) sec 10.6 INR (0.9-1.1) 1.1 APTT (20.6-30.2) sec 31.9 H VBG Lactate (<or=2.0) mmol/L 15.0 H* Urine Color (Yellow) Yellow Urine Clarity (Clear) Clear Urine pH (5-8) 5.5 Ur Specific [place] (1.005-1.025) 1.025 Urine Protein (Neg-Trace) mg/dL Negative Urine Ketones (Negative) mg/dL Negative Urine Blood (Negative) Negative Urine Nitrite (Negative) Negative Urine Bilirubin (Negative) Negative Urine Urobilinogen (Up to 0.2) mg/dL 0.2 Ur Leukocyte Esterase (Negative) Negative Urine Glucose (Negative) mg/dL Negative Procedure Airway Management Date of Procedure: 08/18/24 Time of Procedure: 05:07 Patient Consented: Emergent Case Indication: Respiratory failure and Reduced level of consciousness Provider that performed the procedure: Elpidio Healy Mallampati Class: 2 Sedation administered by provider performing procedure: Yes Sedation Given: Etomidate (20) Route of Administration: IV. Etomidate dose(mg): 20. Preparation: recording engineer applied, pulse oximeter, capnometry used, supplemental O2 applied, reversal agents at bedside, suction/airway equipment at bedside and IV secured. ASA Class: II.. Induction setup: Pt. evaluated prior to induction, Pt. Ramped, Head of Bed Elevated, Apneic Oxygenation, NRB - High Flow, Bag Valve Mask Ventilation and Rapid Sequence Induction Ultrasound: Not used Airway Type: Intubation Laryngoscopy: Atraumatic Laryngoscopy, Pre-existing tooth chip and Poor Dentition. Grade: Airway Grade: 1. Airway Blades: Glidescope 4. Endotracheal Tube: Oral and 7.5mm. Placement Confirmation: Cuff inflated with minimally occlusive pressure, Secured with commercial device, Bilateral breath sounds, ETCO2 waveform present, ETCO2 colormetric present and Depth to teeth (23) Paralytic(indicate dose given): Rocuronium Vasoactive Medication(indicate dose given): Norepinephrine Post Induction Medication Management(indicate dose given): Propofol IV Gastric Tube: Placed by Other Person Procedure Complications: None Procedure Outcome: Successful Procedure Description Note: Blood was pretty present in the patient's airway and was suctioned easily. Arterial Line Date of Procedure: 08/18/24 Time of Procedure: 05:09 Provider that performed the procedure: Elpidio Healy Indication: ABG and BP Monitoring Patient Consented: Emergent Case Standard Time Out Performed: Yes Sterility: Sterile Laterality: Left Insertion Site: Radial Arterial Line Catheter: 20G Arrow Arterial Line Procedure: Vessel accessed with needle, Vessel accessed with catheter over needle and Guidewire placed with ease Ultrasound: Used/Image Saved Number of Attempts( see previous attempts in note section): 1 Dressing: Tegaderm Applied, Chlorhexidine Dressing and BioPatch Applied Procedure Tolerated: No Complications Procedure Outcome: Successful Central Line Placement Date of Procedure: 08/18/24 Time of Procedure: 05:11 Provider that performed the procedure: Elpidio Healy Indication: Central venous access, Definitive access, Emergent access and Hypotension Patient Consented: Emergent Case Standard Time Out Performed: Yes Sterility: Sterile Laterality: Right Insertion Site: Internal Jugular (IJ) Central Line Type: Triple Lumen Catheter Insertion Procedure: Vessel accessed with needle, Vessel accessed with catheter over needle, catheter advanced, Guidewire placed with ease, Extension tubing fills with blood, then empties easily with gravity, Dermatotomy (skin chris) made with scalpel, Dilator placed without resistance, Introducer/Catheter placed without resistance, Guidewire removed and Claves placed, blood withdrawn, ports flushed and clamped Ultrasound: Used/Image Saved Number of Attempts(see previous attempts in note section): 1 Post Procedure: good blood return, all ports aspirated, flushed, capped and sutured in place with 2-0 silk Post Procedure X-Ray: tip of catheter in good position Dressing: Tegaderm applied Procedure Tolerated: No Complications and Patient tolerated well Procedure Outcome: Successful Medical Decision Making This is a 44-year-old male with a past medical history of hepatitis C, IV drug use, previous methadone use, alcohol use, who presents today from senior living for evaluation of overdose. Patient was brought into senior living for intake, he was scanned and found to be body packing. He was then sent to an isolation room, and shortly thereafter was found eating/chewing one of the components of the body packing. Security services state that whenever he was chewing broke in his mouth and cause bleeding. He told services that it was fentanyl and cocaine, and then almost immediately became unresponsive and started having atypical movements. EMS was called and upon their arrival the patient was unresponsive with fixed and dilated pupils. They were unable to gain IV access and the patient was brought to the ER immediately. Patient gives no additional historical components. Upon arrival patient was shackled, extremities were cyanotic, patient was notably tensed with intermittent twitching and jerking of his extremities. Jaw was clenched, blood was noted in his mouth. Spontaneous intermittent respirations were noted. Pupils were dilated, right pupil is noncircular with slight obligation to the lateral component. Concern for toxic overdose, brain bleed, toxic metabolic encephalopathy. Vitals were immediately taken, patient's oxygen saturation was 66%, he was tachycardic in the 120s and an hypotensive shock in the 70s systolic. Decision was made to emergently intubate. No IV access was present, right tibia was drilled, subsequently 100 of rocuronium and 20 of etomidate were administered. Patient was subsequently immediately intubated without difficulty or complication. Blood was in the mouth but this was easily suctioned. No foreign bodies were noted. In conjunction with the intubation the patient was also started on Levophed at 5 mics per minute secondary to his hypotensive shock. Fluids were also started at the same time. Second source of IV access was obtained with an 18-gauge in the right AC. Triple-lumen was placed in the right IJ, and art line was placed in the left radial artery. Patient was started on propofol for sedation out of concern for seizures and toxic overdose. We will get CT imaging, check labs for source of obtundation, rehydrate, monitor closely and reassess. 5:50 AM Laboratory workup has returned, white count normal, platelets atypically low at 93. ABG demonstrates a pH of 7.32, electrolytes normal, renal function stable. Troponin normal, procalcitonin negative. TSH is slightly high at 9.67, free T4 is 1.53. UDS is positive for benzos and cocaine, however the patient did receive 15 of Versed via EMS. CT scan of the head demonstrates no acute process, CT scan of the chest abdomen pelvis demonstrates foreign body in the stomach, no other significant acute process aside from mild reticulonodular densities in the lungs. Patient is stable currently on propofol at 50. Will having Versed drip at 0.1 mg/kg/min. No further seizure-like activity. Discussed the case with the hospitalist Dr. Beck, he agrees with the assessment and plan and the need for admission. I have extensively reviewed the treatment plan with the patient. I have addressed all patient concerns at this time. I have also discussed the plan with the admitting physician and they agree with the current assessment and plan and have agreed to assume responsibility for the patient. All parties demonstrate verbal understanding and agreement with our assessment and plan at this time. The documentation in this chart was dictated using [employer] dictation software. Please excuse any dictation errors. FINDINGS: Tubes, catheters and devices: Endotracheal tube terminates approximately 3.5 cm above the radha. Lungs: No focal consolidation seen. Pleural spaces: No large pleural effusion seen. Heart/Mediastinum: No cardiomegaly. Bones/joints: No acute abnormality. IMPRESSION: No acute findings to explain reported symptoms. FINDINGS: Brain: No intracranial hemorrhage. No significant mass effect. No significant midline shift. Cerebral ventricles: No disproportionate ventriculomegaly. Paranasal sinuses: Mucosal thickening in the ethmoid air cells. Mastoid air cells: No mastoid effusion. Bones: No acute cranial vault fracture seen. Soft tissues: No acute findings. IMPRESSION: No acute intracranial abnormality appreciated. Thank you for allowing us to participate in the care of your patient. Dictated and Authenticated by: Adriana Whaley MD 08/18/2024 5:26 AM Eastern Time ([place] & [place]) Quality:SDOH Health Related Social Needs: 2 No Data to Display Critical Care Time Critical Care Time Critical Care Time: Yes Total Critical Care Time: 90 Attestation: Upon my evaluation, this patient had a high probability of imminent or life- threatening deterioration, which required my direct attention, intervention, and personal management. I have personally provided 90 minutes of critical care time exclusive of time spent on separately billable procedures. Time includes review of laboratory data, radiology results, discussion with consultants, and monitoring for potential decompensation. Interventions were performed as documented. PFSH All Active Problems (Updated 08/26/24 @ 00:03 by RETA DENNY) Opioid dependence on agonist therapy (Acute) Polysubstance abuse (Acute) Hypokalemia (Acute) Medical History (Updated 08/26/24 @ 00:03 by RETA DENNY) Seizure first time last month Surgical History (Updated 08/11/18 @ 16:34 by Renetta Mae DO) History of surgery on extremity L leg ORIF Social History Smoking/Tobacco Use Status: Current every day Smoking risk assessment performed?: Yes Alcohol Intake: former Details: Last use 8 months ago Substance use type: former substance user, crack/cocaine, heroin and IV drugs Details: last use 2016
[2024-08-18 04:51] LABS: FIO2 50 %; Site Arterial Line
[2024-08-18 04:53] LABS: ETHANOL BLOOD < 3.0 mg/dL (<10)
[2024-08-18 04:59] LABS: Absolute Basophil Count 0.09 10^3/uL (0.0-0.2); Absolute Eosinophil Count 0.09 10^3/uL (0.0-0.7); Absolute Lymphocyte Count 5.67 10^3/uL (1.2-3.4); Absolute Monocyte Count 0.73 10^3/uL (0.1-0.8); Atypical Lymphocytes % 3 %; Bands % 1 %; Platelet Count 83 10^3/uL (130-400)
[2024-08-18 05:00] LABS: Absolute Neutrophil Count 2.56 10^3/uL (1.2-6.7); Diff Comment Manual Differential; RBC Morphology Normal
[2024-08-18] MEDS: Omnipaque 350 MG/ML 100 ML BTL IJ (05:00)
[2024-08-18 05:01] LABS: *AMPHETAMINES SCREEN URINE Negative (Negative); *BARBITURATES SCREEN URINE Negative (Negative); *BENZODIAZEPINES SCREEN URINE Positive (Negative); Cannabinoids THC Negative (Negative); Cocaine Screen,Urine Positive (Negative); METHADONE URINE SCREEN Negative (Negative); OPIATES URINE SCREEN Negative (Negative); Tricyclic Antidepressants Negative (Negative)
[2024-08-18 05:01] LABS: Salicylate 4.7 mg/dL (<2.8)
[2024-08-18 05:03] LABS: Acetaminophen < 2 ug/mL (10-30); Procalcitonin < 0.10 ng/mL
[2024-08-18 05:15] LABS: FREE T4 1.53 ng/dL (0.76-1.46); NT-proBNP 70 pg/mL (<300); Troponin I 15 ng/L (<or=76)
--- NOTE | 2024-08-18 05:27 | DI.VRAD_ITS ---
PROCEDURE INFORMATION: Exam: CT Head Without Contrast Exam date and time: 08/18/2024 4:19 AM Age: 44 years old Clinical indication: Other: Drug od TECHNIQUE: Imaging protocol: Computed tomography of the head without contrast. Radiation optimization: All CT scans at this facility use at least one of these dose optimization techniques: automated exposure control; mA and/or kV adjustment per patient size (includes targeted exams where dose is matched to clinical indication); or iterative reconstruction. COMPARISON: CT HEAD CERVICAL SPINE WO 08/11/2018 12:57 PM FINDINGS: Brain: No intracranial hemorrhage. No significant mass effect. No significant midline shift. Cerebral ventricles: No disproportionate ventriculomegaly. Paranasal sinuses: Mucosal thickening in the ethmoid air cells. Mastoid air cells: No mastoid effusion. Bones: No acute cranial vault fracture seen. Soft tissues: No acute findings. IMPRESSION: No acute intracranial abnormality appreciated. Dictated and Authenticated by: Adriana Whaley MD. Orderin Niraj Magallanes MD
--- NOTE | 2024-08-18 05:33 | DI.VRAD_ITS ---
PROCEDURE INFORMATION: Exam: CT Chest With Contrast; Diagnostic Exam date and time: 08/18/2024 5:05 AM Age: 44 years old Clinical indication: Other: Od, body packing, swallowed glass? TECHNIQUE: Imaging protocol: Diagnostic computed tomography of the chest with contrast. Radiation optimization: All CT scans at this facility use at least one of these dose optimization techniques: automated exposure control; mA and/or kV adjustment per patient size (includes targeted exams where dose is matched to clinical indication); or iterative reconstruction. Contrast material: OMNPAQUE 350; Contrast volume: 100 ml; Contrast route: INTRAVENOUS (IV); COMPARISON: No relevant prior studies are available for comparison. FINDINGS: Limitations: Images degraded due to artifact caused by patient motion and arm positioning. Tubes, catheters and devices: Endotracheal tube terminates in midthoracic trachea. Lungs: Reticulonodular densities in the right upper, middle, and lower lobes and in the left lower lobe. Pleural spaces: No pleural effusion. Heart: No pericardial effusion. Esophagus: Fluid in the esophagus. Lymph nodes: Nonspecific mediastinal and hilar lymph nodes. Vasculature: No thoracic aortic aneurysm. Intraperitoneal space: CT scan of the abdomen and pelvis dictated separately. Bones/joints: No acute pertinent abnormality appreciated. Soft tissues: No acute pertinent abnormality appreciated. IMPRESSION: 1. Reticulonodular densities in the lungs. Consider infectious, inflammatory, less likely neoplastic etiologies. Follow-up as clinically warranted. 2. Additional studies dictated separately. PROCEDURE INFORMATION: Exam: CT Abdomen And Pelvis With Contrast Exam date and time: 08/18/2024 5:05 AM Age: 44 years old Clinical indication: Other: Od, body packing, swallowed glass? TECHNIQUE: Imaging protocol: Computed tomography of the abdomen and pelvis with contrast. Radiation optimization: All CT scans at this facility use at least one of these dose optimization techniques: automated exposure control; mA and/or kV adjustment per patient size (includes targeted exams where dose is matched to clinical indication); or iterative reconstruction. Contrast material: OMNPAQUE 350; Contrast volume: 100 ml; Contrast route: INTRAVENOUS (IV); COMPARISON: No relevant prior studies are available for comparison. FINDINGS: Limitations: Images degraded due to artifact caused by patient motion and arm positioning. Lungs: CT scan of the chest dictated separately. Liver: No focal hepatic lesion identified. Gallbladder and biliary ducts: Distended gallbladder. Pancreas: Extensive pancreatic calcifications and atrophy consistent with sequelae of chronic pancreatitis. 2.1 cm cystic lesion in the pancreatic head, likely pseudocyst. Spleen: No splenomegaly. Adrenal glands: Nodular adrenal thickening. Kidneys and ureters: No hydronephrosis or evidence for pyelonephritis. Stomach and bowel: Gastric distension. 1.5 cm radiodensity in the stomach, indeterminate. Cannot exclude foreign body. No intestinal obstruction is evident. Retained fecal material is present in the colon. Appendix: No evidence of appendicitis. Intraperitoneal space: No free air. Vasculature: No abdominal aortic aneurysm. Lymph nodes: No acute findings. Urinary bladder: Woo catheter in the urinary bladder which is thickened. Reproductive: No acute findings. Bones/joints: No pertinent acute abnormality seen. Soft tissues: No pertinent acute abnormality seen. IMPRESSION: 1. Bladder wall thickening, poorly evaluated due to underdistention. Consider cystitis, muscular hypertrophy, neoplasm. Follow-up as clinically warranted. 2. 1.5 cm radiodensity in the stomach, indeterminate. Cannot exclude foreign body. 3. Additional findings as above. 4. Additional studies dictated separately. Dictated and Authenticated by: Adriana Whaley MD. Orderin Niraj Magallanes MD
[2024-08-18] MEDS: Normal Saline 1,000 ML 1000 ML IV (05:46)
[2024-08-18 05:48] LABS: Troponin I 21 ng/L (<or=76)
--- NOTE | 2024-08-18 05:53 | HPE_ITS ---
Date of service: 08/18/24 Time of Service: 05:53 Assessment and Plan Assessment and plan (1) Overdose: Status: Acute Assessment and plan: - As noted in HPI, patient was in the process of snf intake when he was scanned with a foreign body noted in his rectum which he was put in isolation, promptly ingested said object, and just before becoming unresponsive stated that it was fentanyl and cocaine - Patient was found down upon EMSs arrival, and patient was not intubated until brought to the emergency department - Postintubation ABG without abnormalities, continue current vent settings - Continue propofol and Versed for sedation - Asymmetric pupil findings concerning for anoxic brain injury, will need further evaluation - Given patient was just intubated, recommend spontaneous breathing trial begin tomorrow morning 08/19/2024 (2) Lactic acidosis: Status: Acute Assessment and plan: - Likely secondary to potentially observed seizure activity when patient first ingested substances in combination with downtime leading up to patient being intubated - Initial lactic about 15 - Status post total 3 L fluid bolus in the emergency department - Follow-up repeat lactic acid History of Present Illness History of Present Illness Chief Complaint: Unintentional overdose Narrative: 44-year-old male with past medical history of hepatitis C and IV drug use with methadone use was brought into the emergency department for unintentional overdose. Information in this documentation was obtained from the emergency room providers note as patient was intubated and sedated at the time of evaluation. According to snf guards patient was being brought in for intake and during full body scan he was noted as having had packed some object in his rectum. He was put in isolation room and shortly after was found eating chewing one of the components of the body packing which broke and caused his mouth to bleed. He then told snf officials that substances were fentanyl and cocaine and patient immediately became unresponsive and had was described as atypical movements. EMS was called upon their arrival the patient was unresponsive with fixed dilated pupils, they were unable to gain IV access and patient was brought immediately to the emergency department. Upon arrival to the emergency department patient was obtunded and immediately endotracheally intubated. He was noted as being cyanotic, with twitching and jerking movements with his clenched jaw and blood in his mouth. He was also noted as having not circular right pupil was slightly oblong lateral component concern for toxic overdose, brain bleed or toxic metabolic encephalopathy. Shortly after intubation patient's mouth was suctioned and no foreign bodies were noted, but postintubation patient was hypotensive and was briefly on Levophed with improvement of his mean arterial pressure so Levophed was discontinued. Patient was also given fluid bolus, total of 3 L while in the emergency department. Additionally, art line and central line were also placed. Patient was put on propofol and Versed for sedation. CT chest abdomen pelvis and head were all performed, showing radio nodular densities in the lungs consider infectious, inflammatory processes, with head CT showing no acute intracranial abnormalities. Patient's ABG performed post intubation showed pH of 7.32, CO2 of 42 and PO2 of 85. Initial, patient's initial lactic was 15 with repeat pending. At which time emergency room physician paged hospitalist for admission for patient with unintentional overdose of fentanyl and cocaine currently intubated. Review of Systems All systems reviewed & are unremarkable except as noted in HPI and below PFSH All Active Problems (Updated 08/18/24 @ 05:58 by Epi Beck MD) Lactic acidosis (Acute) Overdose (Acute) Medical History (Updated 08/18/24 @ 05:58 by Epi Beck MD) Seizure first time last month Surgical History (Updated 08/11/18 @ 16:34 by Renetta Mae DO) History of surgery on extremity L leg ORIF Social History Smoking/Tobacco Use Status: Current every day Smoking risk assessment performed?: Yes Alcohol Intake: former Details: Last use 8 months ago Substance use type: former substance user, crack/cocaine, heroin and IV drugs Details: last use 2016 Meds Allergies and Home Medications Allergies Allergy/AdvReac Type Severity Reaction Status Date / Time No Known Allergies Allergy Unverified 08/11/18 13:01 Home Medications ?Medication ?Instructions ?Recorded ?Confirmed ?Type gabapentin 600 mg tablet 600 mg PO DAILY 08/11/18 08/11/18 History methadone 5 mg/5 mL oral solution 125 mg PO DAILY AM 08/11/18 08/11/18 History Exam Narrative Exam Narrative: Chronically ill-appearing disheveled gentleman laying in bed, intubated and sedated, heart regular rhythm, lungs with mechanical vent sounds otherwise clear to auscultation bilaterally, abdomen soft, nontender, nondistended, diffuse excoriations in bilateral upper and lower extremities in various stages of healing, PERRLA Results Labs 08/18/24 04:02 08/18/24 04:02 Labs: Laboratory Results - last 24 hr 08/18/24 08/18/24 08/18/24 04:02 04:13 04:45 WBC 9.14 RBC 5.25 Hgb 14.0 Hct 47.9 MCV 91 MCH 26.7 L MCHC 29.2 L RDW 14.6 H Plt Count 83 L MPV 12.1 H Immature Gran % 0.0 Neutrophils % 27.0 Band Neutrophils % 1 Lymphocytes % 59.0 Atypical Lymphs % 3 Monocytes % 8.0 Eosinophils % 1.0 Basophils % 1.0 Nucleated RBC % 1.0 H Absolute Neutrophils 2.56 Absolute Lymphocytes 5.67 H Absolute Monocytes 0.73 Absolute Eosinophils 0.09 Absolute Basophils 0.09 RBC Morphology Normal PT 10.6 INR 1.1 APTT 31.9 H ABG Sample Site Arterial Line ABG pH 7.32 L ABG pCO2 42 ABG pO2 85 ABG HCO3 22 ABG Total CO2 20 L ABG O2 Saturation 96 ABG Base Excess -5 L VBG Lactate 15.0 H* FiO2 50 Sodium 142 Potassium 4.1 Chloride 101 Carbon Dioxide 22.4 Anion Gap 18.6 H BUN 21 H Creatinine 1.3 Est GFR (CKD-EPI 2020) 70.34 Glucose 154 H Calcium 9.6 Total Bilirubin 0.3 AST 30 ALT 23 Alkaline Phosphatase 89 Troponin I 15 NT-Pro-B Natriuret Pep 70 Total Protein 8.9 H Albumin 3.6 Procalcitonin < 0.10 TSH 9.67 H Free T4 1.53 H Urine Color Yellow Urine Clarity Clear Urine pH 5.5 Ur Specific [place] 1.025 Urine Protein Negative Urine Ketones Negative Urine Blood Negative Urine Nitrite Negative Urine Bilirubin Negative Urine Urobilinogen 0.2 Ur Leukocyte Esterase Negative Urine Glucose Negative Salicylates 4.7 Urine Opiates Screen Negative Urine Methadone Screen Negative Acetaminophen < 2 Ur Barbiturates Screen Negative Ur Tricyclics Screen Negative Ur Amphetamines Screen Negative U Benzodiazepines Scrn Positive A Urine Cocaine Screen Positive A Ur THC Screen Negative Ethyl Alcohol < 3.0 08/18/24 05:20 WBC RBC Hgb Hct MCV MCH MCHC RDW Plt Count MPV Immature Gran % Neutrophils % Band Neutrophils % Lymphocytes % Atypical Lymphs % Monocytes % Eosinophils % Basophils % Nucleated RBC % Absolute Neutrophils Absolute Lymphocytes Absolute Monocytes Absolute Eosinophils Absolute Basophils RBC Morphology PT INR APTT ABG Sample Site ABG pH ABG pCO2 ABG pO2 ABG HCO3 ABG Total CO2 ABG O2 Saturation ABG Base Excess VBG Lactate FiO2 Sodium Potassium Chloride Carbon Dioxide Anion Gap BUN Creatinine Est GFR (CKD-EPI 2020) Glucose Calcium Total Bilirubin AST ALT Alkaline Phosphatase Troponin I 21 NT-Pro-B Natriuret Pep Total Protein Albumin Procalcitonin TSH Free T4 Urine Color Urine Clarity Urine pH Ur Specific [place] Urine Protein Urine Ketones Urine Blood Urine Nitrite Urine Bilirubin Urine Urobilinogen Ur Leukocyte Esterase Urine Glucose Salicylates Urine Opiates Screen Urine Methadone Screen Acetaminophen Ur Barbiturates Screen Ur Tricyclics Screen Ur Amphetamines Screen U Benzodiazepines Scrn Urine Cocaine Screen Ur THC Screen Ethyl Alcohol Last Vital Signs Pulse 96 H 08/18/24 05:36 Resp 16 08/18/24 05:36 BP 161/94 H 08/18/24 04:26 Pulse Ox 92 08/18/24 05:36 Time Spent Time spent with Patient: >75 minutes Time was spent: preparing to see the patient(eg.review tests), obtaining and/or reviewing separately otained hiistory, ordering medications,tests, procedures, referring, communicating with other health women's health care nurse practitioner, indepentently interpreting results, counseling the patient and care coordination
--- NOTE | 2024-08-18 06:00 | RT.EKG_ITS ---
APPROVED REPORT Exam: Resting ECG Reason for Exam: overdose Patient Location: E HR:92 bpm ECG Measurements Heart Rate 92 AXIS RI 187 P 85 QRSd 95 QRS 85 QT 431 T 64 QTc 532 Conclusion Sinus rhythm...normal P axis, V-rate 60- 99 Prolonged QT interval...QTc >500mS I have reviewed and interpreted ECG and agree with software generated interpretation.
[2024-08-18 06:53] LABS: Troponin I 30 ng/L (<or=76)
[2024-08-18] MEDS: Enoxaparin 40 MG/0.4 ML SYR SC (07:39)
[2024-08-18] MEDS: Pantoprazole 40 MG VIAL IVP (07:39)
--- NOTE | 2024-08-18 07:44 | W.PC.ACHO ---
Registration Status: Primary Language: Preferred Language: ED Information & Data Chief Complaint OD/Poison 08/18/24 06:27 Chief Complaint OD/Poison 08/18/24 05:10 Triage Note BIBEMS from snf. 08/18/24 03:57 Incarcerated ~2230 for illicit substance use, noted to be 'packing' illicit more substances by correction staff when scanned. unpacked' per [place] but then reportedly ingested what was suspected to be ' an eightball of cocaine and some percocets'. Progressive deterioration in LOC. Spastic tonic/clonic movements and not responsive to voice or stimulation. Pupils dialated and minimally responsive 6mm. Medical / Surgical History (Last Reviewed 08/11/18 @ 16:32 by Renetta Mae DO) Seizure (Last Updated 08/11/18 @ 16:34 by Renetta Mae DO) History of surgery on extremity Most Recent Vital Signs Temperature 35.8 C L 08/18/24 06:33 Pulse 86 08/18/24 06:33 Pulse 94 H 08/18/24 05:40 Respiratory Rate 16 08/18/24 07:05 Respiratory Effort Labored, Agonal 08/18/24 03:59 Respiratory Depth Shallow 08/18/24 03:59 Respiratory Pattern Irregular 08/18/24 03:59 Blood Pressure 132/67 08/18/24 06:27 Blood Pressure Mean 114 08/18/24 04:26 Blood Pressure Position Supine 08/18/24 03:57 Pulse Oximetry 95 08/18/24 07:05 Respiratory End-tidal CO2 26 08/18/24 07:05 Oxygen Delivery Method Non-Rebreather 08/18/24 03:57 Fraction of Inspired Oxygen (FIO2) 45 08/18/24 07:05 End Tidal Co2 15 08/18/24 03:57 Comment rectal temp 08/18/24 06:33 Arterial Systolic 129 08/18/24 05:40 Arterial Diastolic 65 08/18/24 05:40 Arterial Mean 84 08/18/24 05:40 Allergies No Known Allergies Allergy (Unverified 08/11/18 13:01) Active Medications Generic Name Dose Route Start Last Admin Trade Name Freq PRN Reason Stop Dose Admin Norepinephrine Bitartrate 8 mg in 250 mls @ 9.375 mls/hr 08/18/24 04:00 08/18/24 04:19 IV 0 mcg/min INFUSION GIOVANNA 0 mls/hr Titration Protocol 5 MCG/MIN Propofol 1,000 mg in 100 mls @ 2.064 mls/hr 08/18/24 06:00 08/18/24 03:52 Diprivan IVPB 50 mcg/kg/min INFUSION GIOVANNA 20.64 mls/hr Administration Protocol 5 MCG/KG/MIN Iohexol 100 ml 08/18/24 04:15 08/18/24 05:00 Omnipaque 350 Mg/Ml 100 Ml Btl IJ 09/17/24 23:59 100 ml DIRECTED GIOVANNA Administration Sodium Chloride 0 ml 08/18/24 03:56 08/18/24 04:16 Normal Saline Flush 10 Ml Syr IVP 10 ml PRN PRN Administration Sodium Chloride 50 ml 08/18/24 04:15 08/18/24 04:15 Normal Saline - Diluent 50 Ml Vial IJ 50 ml .FOR DI USE GIOVANNA Administration IV IV Catheter Type [Internal TRIPLE LUMEN IJ Jugular] IV Catheter Type [Right Tibia] IO (Intraosseous) IV Catheter Type [Right Saline Lock Antecubital] IV Catheter Gauge [Right Tibia 25 ] IV Catheter Gauge [Right 18 Antecubital] Diet Orders Category Date Time Status Nothing Per Oral [DIET] Nutrition 08/18/24 Breakfast Active Diagnostics 08/18/24 08/18/24 08/18/24 Range/Units 06:30 06:02 05:20 WBC (4.4-10.8) 10^3/uL RBC (4.36-5.78) 10^6/uL Hgb (13.5-17.5) g/dL Hct (40.0-50.0) % MCV (80-95) fL MCH (27.0-33.0) pg MCHC (32.0-36.0) % RDW (11.8-14.1) % Plt Count (130-400) 10^3/uL MPV (8.0-11.0) fL Immature Gran % % Neutrophils % % Band Neutrophils % % Lymphocytes % % Atypical Lymphs % % Monocytes % % Eosinophils % % Basophils % % Nucleated RBC % (0.0-0.3) % Absolute Neutrophils (1.2-6.7) 10^3/uL Absolute Lymphocytes (1.2-3.4) 10^3/uL Absolute Monocytes (0.1-0.8) 10^3/uL Absolute Eosinophils (0.0-0.7) 10^3/uL Absolute Basophils (0.0-0.2) 10^3/uL RBC Morphology PT (9.1-11.1) sec INR (0.9-1.1) APTT (20.6-30.2) sec ABG Sample Site ABG pH (7.35-7.45) ABG pCO2 (35-45) mmHg ABG pO2 (80-105) mmHg ABG HCO3 (22-26) mmol/L ABG Total CO2 (23-27) mmol/L ABG O2 Saturation (95-98) % ABG Base Excess (-2-3) mmol/L VBG Lactate 1.0 (<or=2.0) mmol/L FiO2 % Sodium (136-145) mmol/L Potassium (3.5-5.1) mmol/L Chloride (98-107) mmol/L Carbon Dioxide (21.0-32.0) mmol/L Anion Gap (3-11) mmol/L BUN (7-18) mg/dL Creatinine (0.70-1.30) mg/dL Est GFR (CKD-EPI 2020) (mL/min/1.73m2) Glucose (74-106) mg/dL Calcium (8.5-10.1) mg/dL Total Bilirubin (0.2-1.0) mg/dL AST (15-37) U/L ALT (16-63) U/L Alkaline Phosphatase (46-116) U/L Troponin I 30 21 (<or=76) ng/L NT-Pro-B Natriuret Pep (<300) pg/mL Total Protein (6.4-8.2) g/dL Albumin (3.4-5.0) g/dL Procalcitonin ng/mL TSH (0.36-3.74) uIU/mL Free T4 (0.76-1.46) ng/dL Urine Color (Yellow) Urine Clarity (Clear) Urine pH (5-8) Ur Specific [place] (1.005-1.025) Urine Protein (Neg-Trace) mg/dL Urine Ketones (Negative) mg/dL Urine Blood (Negative) Urine Nitrite (Negative) Urine Bilirubin (Negative) Urine Urobilinogen (Up to 0.2) mg/dL Ur Leukocyte Esterase (Negative) Urine Glucose (Negative) mg/dL Salicylates (<2.8) mg/dL Urine Opiates Screen (Negative) Urine Methadone Screen (Negative) Urine Fentanyl Screen Acetaminophen (10-30) ug/mL Ur Barbiturates Screen (Negative) Ur Tricyclics Screen (Negative) Ur Amphetamines Screen (Negative) U Benzodiazepines Scrn (Negative) Urine Cocaine Screen (Negative) Ur THC Screen (Negative) Ethyl Alcohol (<10) mg/dL 08/18/24 08/18/24 08/18/24 Range/Units 04:45 04:13 04:02 WBC 9.14 (4.4-10.8) 10^3/uL RBC 5.25 (4.36-5.78) 10^6/uL Hgb 14.0 (13.5-17.5) g/dL Hct 47.9 (40.0-50.0) % MCV 91 (80-95) fL MCH 26.7 L (27.0-33.0) pg MCHC 29.2 L (32.0-36.0) % RDW 14.6 H (11.8-14.1) % Plt Count 83 L (130-400) 10^3/uL MPV 12.1 H (8.0-11.0) fL Immature Gran % 0.0 % Neutrophils % 27.0 % Band Neutrophils % 1 % Lymphocytes % 59.0 % Atypical Lymphs % 3 % Monocytes % 8.0 % Eosinophils % 1.0 % Basophils % 1.0 % Nucleated RBC % 1.0 H (0.0-0.3) % Absolute Neutrophils 2.56 (1.2-6.7) 10^3/uL Absolute Lymphocytes 5.67 H (1.2-3.4) 10^3/uL Absolute Monocytes 0.73 (0.1-0.8) 10^3/uL Absolute Eosinophils 0.09 (0.0-0.7) 10^3/uL Absolute Basophils 0.09 (0.0-0.2) 10^3/uL RBC Morphology Normal PT 10.6 (9.1-11.1) sec INR 1.1 (0.9-1.1) APTT 31.9 H (20.6-30.2) sec ABG Sample Site Arterial Line ABG pH 7.32 L (7.35-7.45) ABG pCO2 42 (35-45) mmHg ABG pO2 85 (80-105) mmHg ABG HCO3 22 (22-26) mmol/L ABG Total CO2 20 L (23-27) mmol/L ABG O2 Saturation 96 (95-98) % ABG Base Excess -5 L (-2-3) mmol/L VBG Lactate 15.0 H* (<or=2.0) mmol/L FiO2 50 % Sodium 142 (136-145) mmol/L Potassium 4.1 (3.5-5.1) mmol/L Chloride 101 (98-107) mmol/L Carbon Dioxide 22.4 (21.0-32.0) mmol/L Anion Gap 18.6 H (3-11) mmol/L BUN 21 H (7-18) mg/dL Creatinine 1.3 (0.70-1.30) mg/dL Est GFR (CKD-EPI 2020) 70.34 (mL/min/1.73m2) Glucose 154 H (74-106) mg/dL Calcium 9.6 (8.5-10.1) mg/dL Total Bilirubin 0.3 (0.2-1.0) mg/dL AST 30 (15-37) U/L ALT 23 (16-63) U/L Alkaline Phosphatase 89 (46-116) U/L Troponin I 15 (<or=76) ng/L NT-Pro-B Natriuret Pep 70 (<300) pg/mL Total Protein 8.9 H (6.4-8.2) g/dL Albumin 3.6 (3.4-5.0) g/dL Procalcitonin < 0.10 ng/mL TSH 9.67 H (0.36-3.74) uIU/mL Free T4 1.53 H (0.76-1.46) ng/dL Urine Color Yellow (Yellow) Urine Clarity Clear (Clear) Urine pH 5.5 (5-8) Ur Specific [place] 1.025 (1.005-1.025) Urine Protein Negative (Neg-Trace) mg/dL Urine Ketones Negative (Negative) mg/dL Urine Blood Negative (Negative) Urine Nitrite Negative (Negative) Urine Bilirubin Negative (Negative) Urine Urobilinogen 0.2 (Up to 0.2) mg/dL Ur Leukocyte Esterase Negative (Negative) Urine Glucose Negative (Negative) mg/dL Salicylates 4.7 (<2.8) mg/dL Urine Opiates Screen Negative (Negative) Urine Methadone Screen Negative (Negative) Urine Fentanyl Screen Pending Acetaminophen < 2 (10-30) ug/mL Ur Barbiturates Screen Negative (Negative) Ur Tricyclics Screen Negative (Negative) Ur Amphetamines Screen Negative (Negative) U Benzodiazepines Scrn Positive A (Negative) Urine Cocaine Screen Positive A (Negative) Ur THC Screen Negative (Negative) Ethyl Alcohol < 3.0 (<10) mg/dL Intake and Output - 24 Hour Total 08/18/24 03:35 thru 08/18/24 05:52 Intake Total 3001.875 Output Total 725 Balance 2276.875 Weight 68.8 kg Intake: IV 3001.875 Output: Urine 725 Other: Urine Color Straw Urine Appearance Clear Urinary Catheter Urinary Catheter Date of 08/18/24 Insertion [Urethral (Woo)] Time of insertion [Urethral ( 04:02 Woo)] Falls Risk Assessment History of Falls No History 08/18/24 03:59 Contributing Factors Unstable,Impairments 08/18/24 03:59 Ambulatory Aids Independent 08/18/24 03:59 Tubes/Lines With any additional score 08/18/24 03:59 Gait Evaluation W/any additional score 08/18/24 03:59 Cognition Cognitive impairment 08/18/24 03:59 Fall Total Score 61 08/18/24 03:59 Level of Risk High Risk 08/18/24 03:59 Restraint Information Behavior Requiring Restraints/ Harm to Patient Seclusion Date of Initiation 08/18/24 Time Restraints were Initiated 04:19 Note RESTRAINED FOR PROTECTION OF MEDICAL EQUIPMENT NECESSSARY FOR PT CONDITION (ETT/ARTERIAL LINE/ CENTRAL LINE) Problems (Last Reviewed 08/11/18 @ 16:32 by Renetta Mae DO) Lactic acidosis (Acute) Overdose (Acute) v v v v v v v v v Sending and/or Receiving Nurses: Please use comment section below to note any information pertinent to the patient hand-off not included above. Information / Comments: Report received from: Lana Echeverria RN all questions answered: yes
--- NOTE | 2024-08-18 08:55 | DI.VRAD_ITS ---
PROCEDURE INFORMATION: Exam: XR Chest Exam date and time: 08/18/2024 8:47 AM Age: 44 years old Clinical indication: Other: Placement of ng tube TECHNIQUE: Imaging protocol: Radiologic exam of the chest. Views: 1 view. COMPARISON: No relevant prior studies are available for comparison. FINDINGS: Tubes, catheters and devices: Nasogastric tube terminates in the expected location of the proximal stomach. Endotracheal tube terminates approximately 4.5 cm above the radha. Right central venous catheter terminates in the expected location of the superior vena cava. Lungs: No focal consolidation seen. Pleural spaces: No large pleural effusion seen. Heart/Mediastinum: No cardiomegaly. Bones/joints: No acute abnormality. IMPRESSION: Tubes and lines as above. Dictated and Authenticated by: Adriana Whaley MD. Orderin Lemuel Grigsby MD
[2024-08-18] MEDS: dexmedeTOMidine IN 0.9 % NACL 400 MCG/100 ML BTL 6.88 MCG IV (08:58)
[2024-08-18] MEDS: DEXTROSE 5%-LACTATED RINGERS 1,000 ML 125 ML IV ×2 (09:27→17:31)
[2024-08-18] MEDS: PROPOFOL 1,000 MG/100 ML BTL 14.448 MG IVPB (18:41)
[2024-08-18] MEDS: PROPOFOL 1,000 MG/100 ML BTL 16.512 MG IVPB (19:04)
[2024-08-18] MEDS: dexmedeTOMidine IN 0.9 % NACL 400 MCG/100 ML BTL 14.6 MCG IV (20:47)
[2024-08-18] MEDS: DEXTROSE 5%-LACTATED RINGERS 500 ML 1000 ML IV (21:27)
[2024-08-18] MEDS: Chlorhexidine Gluconate 0.12% Mouthwash 15 ML BTL 30 ML MM (22:46)
[2024-08-18] MEDS: DEXTROSE 5%-LACTATED RINGERS 1,000 ML 250 ML IV (23:36)
[2024-08-19] VITALS (61 sets, daily range): BP systolic 79–145; BP diastolic 44–98; PULSE 47–85; RESP 10–46; TEMP 36.7–39.4; O2SAT 90–99
[2024-08-19] MEDS: ACETAMINOPHEN 1,000 MG/100 ML BAG 400 MG IVPB ×2 (00:04→06:28)
[2024-08-19] MEDS: PROPOFOL 1,000 MG/100 ML BTL 20.64 MG IVPB (00:05)
[2024-08-19] MEDS: Normal Saline Flush 10 ML SYR IVP ×14 (00:13→20:23)
[2024-08-19] MEDS: Bacitracin 1 PACKET TP (00:46)
[2024-08-19] MEDS: Norepinephrine in D5W 8 MG/250 ML BAG 10 MG IV (01:14)
[2024-08-19] MEDS: dexmedeTOMidine IN 0.9 % NACL 400 MCG/100 ML BTL 21 MCG IV (02:26)
[2024-08-19] MEDS: DEXTROSE 5%-LACTATED RINGERS 1,000 ML 250 ML IV ×3 (02:41→10:36)
[2024-08-19] MEDS: PROPOFOL 1,000 MG/100 ML BTL 33.024 MG IVPB ×3 (03:09→09:27)
[2024-08-19] MEDS: fentaNYL 100 MCG/2 ML VIAL 50 MCG IVP ×3 (03:21→16:05)
--- NOTE | 2024-08-19 03:30 | RESPIRATORY ---
Pt received on vc/ac tolerating settings well wno complications. T/o the night pt had increasing secretions via ett with a strong cough.0200 Called to pt's room to evaluate need for sx and vent as pt was looking uncomfortable and was tachypneic. Shortly after arrival to the room pt was coughing up large amounts of cloudy yellow sputum and vent was alarming for high rr and high pip. Pt was waking up and trying to sit up, gagging on ett. RN gave boluses w/short term relief to pt calming down. After multiple boluses pt is resting in bed but still dyssynchronous with the vent, pip in the 30's, and pt looked generaly uncomfortable with his breathing. Pt changed to asv and immediately looks more comfortable. RR decreased, pip decreased, pt tolerated change well. -Will continue to monitor.
[2024-08-19] MEDS: AMPICILLIN/SULBACTAM 3 GM in Normal Saline 100 ML IVPB (03:32)
[2024-08-19 05:57] LABS: HCT 36.5 % (40.0-50.0); HGB 11.7 g/dL (13.5-17.5); MCH 26.7 pg (27.0-33.0); MCHC 32.1 % (32.0-36.0); MCV 83 fL (80-95); MPV 11.6 fL (8.0-11.0); RBC 4.39 10^6/uL (4.36-5.78); RDW 15.4 % (11.8-14.1); RDW-SD 46.7 fL; WBC 13.74 10^3/uL (4.4-10.8)
[2024-08-19 06:08] LABS: BUN 8 mg/dL (7-18); CREATININE 0.8 mg/dL (0.70-1.30); Calcium 8.1 mg/dL (8.5-10.1); Chloride 110 mmol/L (98-107); Estimated GFR 113.32 (mL/min/1.73m2); Glucose 157 mg/dL (74-106); Potassium 3.2 mmol/L (3.5-5.1); Sodium 142 mmol/L (136-145)
[2024-08-19] MEDS: Pantoprazole 40 MG VIAL IVP (06:10)
[2024-08-19] MEDS: dexmedeTOMidine IN 0.9 % NACL 400 MCG/100 ML BTL 24.3 MCG IV (06:11)
[2024-08-19 06:32] LABS: Platelet Count 49 10^3/uL (130-400)
[2024-08-19] MEDS: POTASSIUM CHLORIDE 20 MEQ/100 ML BAG 50 MEQ IV_INF ×2 (09:07→10:48)
[2024-08-19] MEDS: Chlorhexidine Gluconate 0.12% Mouthwash 15 ML BTL 30 ML MM ×2 (09:24→20:21)
--- NOTE | 2024-08-19 09:35 | INITIAL_ITS ---
Date of service: 08/19/24 Time of Service: 09:36 Care Management Initial Assmt Initial Assessment Reason for Hospitalization: overdose Functional Status/Living Situation Patient Presentation: Best was transferred to [facility] after he was found unconscious at the [facility]. He was being processed into the system when an unidentified object was found in his rectum on imaging. He was isolated and a short time later was found unconscious after ingesting an unknown amount of drugs (Fenatanyl and cocaine) that had presumably been hidden in his rectum. Best remains intubated in the ICU therefore CM was unable to meet with him and there is no contact information available. Town of Residence: [facility] Resides with: Other ([facility]) Employment Status: Unemployed Instrumental Activities of Daily Living (ADLs): Independent Medications Medication Management: No Issues/Barriers identified Advance Directives Advance Directives: Do you have an Advance Directive: N 08/11/18 14:29 AD On File at [facility]: N 08/11/18 14:29 Date Asked 08/18/24 08/18/24 07:34 AD Date Reviewed COLST On File at [facility] COLST Date Scanned Code Status Resuscitation Status Full Code Portal Pt does not currently have a portal and education provided: No Insurance Coverage/Financial Issues Insurance: Medicaid Care Team Visit Care Team Role Provider Type Seb Hdez MD [facility] STAFF PHYSICIAN Unknown Unknown Primary Care Provider STAFF PHYSICIAN Elpidio Healy DO Emergency Provider [facility] STAFF PHYSICIAN Epi Beck MD Admit Provider [facility] STAFF PHYSICIAN Attending Provider Discharge Potential Discharge Needs: PCP F/U Appt Anticipated Barriers to Discharge: Medical Status Patient/Family Education Needs: Review discharge instructions, discuss Ask Me Three Transportation: Facility Transport Plan: Anticipate Best will be transported back to [facility] when medically cleared. He will follow up with the facility provider and plan of care and transport via facility vehicle with corrections officers. CM will follow. Social Determinants of Health Screening Will the Patient Participate in the Screening?: Unable to obtain PFSH All Active Problems (Updated 08/19/24 @ 14:04 by Seb Hdez) Fever (Acute) Opioid dependence on agonist therapy (Acute) Polysubstance abuse (Acute) DVT prophylaxis (Acute) Hypokalemia (Acute) Thrombocytopenia (Chronic) Lactic acidosis (Acute) Overdose (Acute) Medical History (Updated 08/19/24 @ 14:04 by Seb Hdez) Seizure first time last month Surgical History (Updated 08/11/18 @ 16:34 by Renetta Mae DO) History of surgery on extremity L leg ORIF Social History Smoking/Tobacco Use Status: Current every day Smoking risk assessment performed?: Yes Alcohol Intake: former Details: Last use 8 months ago Substance use type: former substance user, crack/cocaine, heroin and IV drugs Details: last use 2016
--- NOTE | 2024-08-19 10:04 | RESPIRATORY ---
08/19/24 Asked by RN to assess pt; pt slightly agitated. Per RN there was a short few minute interruption in sedation medications due to complications and patient became agitated. This RT oral suctioned for a small amount of secretions and in-line suctioned for no secretions. ETT at 23cm at the teeth. Pt sedation meds continued and patient began to settle down and looks comfortable on current settings. Pt SPO2 93%, RR 21, and HR 57.
[2024-08-19] MEDS: dexmedeTOMidine IN 0.9 % NACL 400 MCG/100 ML BTL 25.8 MCG IV ×4 (10:27→21:01)
--- NOTE | 2024-08-19 10:30 | DI.US_ITS ---
APPROVED REPORT EXAM: Comprehensive 2D, Doppler, and color-flow Echocardiogram Patient Location: In-Patient Room/Bed: GSL323 Lpn Rn: Priscila Moss RDCS (AE) Indications: Hypotension, Fever, IVDU, Intubated Conclusion Normal left ventricular wall thickness and chamber size. Ejection fraction is 58%. Wall motion is n ormal Normal right ventricular size and function Both atria are normal in size There is no structural or hemodynamically significant valvular disease Wall motion Left Ventricle Technically limited imaging. Patient is intubated with images obtained in a very low parasternal. The left ventricle is grossly normal size. The left ventricular systolic function is normal. The left ve ntricular ejection fraction is within the normal range. There is normal left ventricular wall thickne ss. There is normal LV segmental wall motion. There is no ventricular septal defect visualized. LVEF is 58%. Right Ventricle The right ventricle is normal size. The right ventricular systolic function is normal. Atria The left atrium size is normal. The right atrium size is normal. The interatrial septum is intact wit h no evidence for an atrial septal defect. Aortic Valve The aortic valve is normal in structure. Aortic valve is trileaflet. There is no aortic valvular sten osis. No aortic regurgitation is present. Mitral Valve The mitral valve is normal in structure. No evidence of mitral valve stenosis. Trace mitral regurgita tion. There is no evidence of mitral valve vegetations. Tricuspid Valve The tricuspid valve is normal in structure. There is no tricuspid valve stenosis. Trace tricuspid reg urgitation. There is no tricuspid valve vegetations. Pulmonic Valve The pulmonary valve is normal in structure. There is no pulmonic valvular stenosis. There is no pulmo sultana valvular regurgitation. There is no pulmonic valve vegetations. Great Vessels The aortic root is normal in size. Ascending aorta is not well visualized. Aortic arch is not well v isualized. The IVC evaluated with patient on vent. Pericardium There is no pericardial effusion. 2D Dimensions IVSD d PLAX 0.73 cm M: 0.6-1.2 Ao Root d 2.85 cm M: 3.1 - 3.7 LVPW d PLAX 0.71 cm M: 0.6 - 1.2 LVID d PLAX 4.65 cm M: 4.2 - 5.8 LVDs 3.22 cm M: 2.5 - 4.0 LV EF Teichholz 58.5 % FS 30.86 % LV EDV (Teich) 99.9 mL LV ESV (Teich) 41.4 mL M-Mode TAPSE 2.00 cm (M/F) >1.7 LV Diastology MV E' medial 0.113 (>0.07 m/s) MV E Vmax 0.74 (0.4-1.3 m/s) MV E/E' MED 6.54 (<14) MV A Vmax 0.55 (0.4-1.3 m/s) MV E' lateral 0.149 (>0.1 m/s) E/A Ratio 1.3 MV E/E' LAT 4.98 (<14) MV E' Average 0.131 m/s MV E/E'(average) 5.65 Aortic Valve AoV Vmax 1.43 m/s LVOT Vmax 1.18 m/s AoV Peak Grad 8.2 mmHg LVOT Peak Grad 5.5 mmHg AoV Area (Vmax) 2.21 cm2 LVOT VTI 0.236 m AoV VTI 0.280 m LVOT Mean Grad 3.8 mmHg AoV Mean Ulisses. 1.04 m/s LVOT SV 63.63 mL AoV Mean Grad 4.9 mmHg LVOT Diam s 1.85 cm AoV Area (VTI) 2.27 cm2 AV Regurg Peak Gr. 8.23 mmHg Velocity Ratio 0.83 Mitral Valve MV DT 190 (160-240 msec) MV Vmax TIPS 0.84 m/s MV Mean Grad 0.8 (<2mmHg) MV VTI 0.283 m Pulmonary Valve PV Vmax 0.98 (0.5-1.5 m/s) RVOT Vmax 0.80 m/s PV Peak Grad 3.8 mmHg RVOT Peak Gr. 2.5 mmHg PV Mean Ulisses 0.68 m/s RVOT VTI 0.190 m PV Mean Grad 2.1 mmHg RVOT Mean Gr. 1.5 mmHg Tricuspid Valve TV S' 0.12 m/s TR Vmax 2.28 m/s TR Peak Grad 20.7 mmHg
[2024-08-19 11:35] LABS: INR 1.1 (0.9-1.1); PTT Activated 28.8 sec (20.6-30.2); Prothrombin Time 11.2 sec (9.1-11.1)
--- NOTE | 2024-08-19 12:06 | PHA.REVIEW2 ---
Pharmacy Admission Review Admission Clinical Review Admission Pharmacy Review: Lactic acidosis (Acute) Overdose (Acute) No Known Allergies Allergy (Unverified 08/11/18 13:01) Resuscitation Status Full Code Height 5 ft 11 in Weight 67.7 kg Comments Comments/Follow Ups: f/u methadone dose and monitor platelets w/ enoxaparin. Pharmacy Admission Review Renal Dosing Renal Dosing: BUN 8 mg/dL (7-18) 08/19/24 05:27 Creatinine 0.8 mg/dL (0.70-1.30) 08/19/24 05:27 Medications needing adjustments: Reviewed Anticoagulation Anticoagulation: Hgb 11.7 g/dL (13.5-17.5) L D 08/19/24 05:27 Hct 36.5 % (40.0-50.0) L 08/19/24 05:27 Plt Count 49 10^3/uL (130-400) L 08/19/24 05:27 INR 1.1 (0.9-1.1) 08/18/24 04:02 Creatinine 0.8 mg/dL (0.70-1.30) 08/19/24 05:27 DVT Prophylaxis: Intervened (On enoxaparin-plts decreased to 49k. Will ask provider if want to hold? ) Relevant Labs Relevant Labs: K+ repleted. Noted thrombocytopenia. Sodium 142 mmol/L (136-145) 08/19/24 05:27 Potassium 3.2 mmol/L (3.5-5.1) L 08/19/24 05:27 Chloride 110 mmol/L (98-107) H 08/19/24 05:27 Electrolytes, C-Reactive P, ESR: Reviewed DM Control DM Control: Reviewed Cardiac Review Cardiac Review: Pt on norepinephrine drip @1.33mcg/min. BP currently 119/66. Troponin I 30 ng/L (<or=76) 08/18/24 06:30 NT-Pro-B Natriuret Pep 70 pg/mL (<300) 08/18/24 04:02 BP, HR, EF%: Reviewed QTc Review QTc: Reviewed List meds needing interventions: ZRa=232 (down from 613). Currently on no meds that prolong QTc. Monitor. IV to PO Switch IV Medications: Reviewed Home Meds Relevent Home Meds Not ordered & why?: Methadone at home per chart. Can try to call group home and/or [facility] for dose verification. May need to hold anyway with prolonged QTc. Current Meds Current Medication Order Review: Reviewed Pharmacy Antibiotic Review Relevant Labs: WBC=13.7, Temp=37.6 Pharmacy Antibiotic Activity: Abx regimen adjustment Comments: unasyn broadened to zosyn for aspiration pneumonia coverage. Adjusted dose from 3.375 q6h to 4.5g IV q6H. Comments Comments/Follow Ups: f/u methadone dose and monitor platelets w/ enoxaparin.
[2024-08-19 12:13] LABS: Vitamin B12 462 pg/mL (193-986)
[2024-08-19] MEDS: PROPOFOL 1,000 MG/100 ML BTL 30.96 MG IVPB (12:47)
[2024-08-19 13:40] LABS: BE -1 mmol/L (-2-3); HCO3 24 mmol/L (22-26); pCO2 38 mmHg (35-45); pH 7.41 (7.35-7.45); pO2 81 mmHg (80-105); sO2 96 % (95-98); tCO2 22 mmol/L (23-27)
--- NOTE | 2024-08-19 13:41 | PGE_ITS ---
Date of Service Date of service: 08/19/24 Time of Service: 13:41 Assessment and Plan Assessment and plan (1) Overdose: Status: Acute Assessment and plan: - As noted in HPI, patient was in the process of skilled nursing intake when he was scanned with a foreign body noted in his rectum which he was put in isolation, promptly ingested said object, and just before becoming unresponsive stated that it was fentanyl and cocaine. Cocaine and benzos on UDS, fentanyl pending. - Patient was found down upon EMSs arrival, and patient was not intubated until brought to the emergency department - Postintubation ABG without abnormalities, stable today after vent settings adjusted -Echo reassuring - Continue propofol and precedex for sedation. - I have not abserved asymmetric pupil findings initially seen in ED, but he may have had some anoxic brain injury and may benefit from MRI prior to discharge. - He was still quite agitated with holding sedation, will postpone spontaneous breathing trial. Leave precedex and give fentanyl before trying to taper propofol. (2) Lactic acidosis: Status: Acute Assessment and plan: - Likely secondary to potentially observed seizure activity when patient first ingested substances in combination with downtime leading up to patient being intubated - Initial lactic about 15 - Status post total 3 L fluid bolus in the emergency department and additional overnight - Follow-up repeat lactic acid normalized by 5/26 AM, anion gap closed. (3) Fever: Status: Acute Assessment and plan: U/a and CXRs okay, CT on admission did show reticulonodular infiltrates. Changed Unasyn to pip/tazo and add doxy for pneumonia. (4) Thrombocytopenia: Status: Chronic Assessment and plan: This appears new, but no labs since 2019 so unclear. No history noted on VITL. No cirrhosis, nl spleen on admission CT. Will repeat coags and LDH to assess for DIC or TTP type picture. Check HIV and B12 with labs. (5) Hypokalemia: Status: Acute Assessment and plan: replace potassium IV (6) Opioid dependence on agonist therapy: Status: Acute Assessment and plan: push fentanyl prn signs of opioid withdrawal until able to resume oral methadone. (7) DVT prophylaxis: Status: Acute Assessment and plan: holding enoxaparin with low platelets, TEDS/SCDs. Subjective Subjective Patient reports: denies diarrhea or vomiting Interval history since last seen: Events: Febrile overnight. Blood cultures sent. Concern for aspiration, started on amp/sulbactam He remains intubated and sedated. Gets agitated with elevated blood pressure when propofol paused. Some response to fentanyl push. Exam Narrative Exam Narrative: Chronically ill-appearing disheveled gentleman laying in bed, intubated and sedated. Head atraumatic other than minor skin wounds, pupils 2mm and reactive dhara. heart regular rhythm, no murmur, lungs with mechanical vent sounds otherwise clear to auscultation bilaterally, abdomen soft, nontender, nondistended, diffuse excoriations in bilateral upper and lower extremities in various stages of healing. extremities without edema or cyanosis. Objective Last Vital Signs Temp 37.3 C 08/19/24 12:33 Pulse 56 L 08/19/24 11:00 Resp 17 08/19/24 13:23 BP 119/66 08/19/24 10:00 Pulse Ox 95 08/19/24 13:23 Laboratory Results - last 24 hr 08/19/24 08/19/24 05:27 11:15 WBC 13.74 H RBC 4.39 Hgb 11.7 L D Hct 36.5 L MCV 83 D MCH 26.7 L MCHC 32.1 D RDW 15.4 H Plt Count 49 L MPV 11.6 H Sodium 142 Potassium 3.2 L Chloride 110 H Carbon Dioxide 25.0 Anion Gap 7.0 BUN 8 Creatinine 0.8 Est GFR (CKD-EPI 2020) 113.32 Glucose 157 H Calcium 8.1 L Vitamin B12 462 Time Spent with Patient Time Spent with Patient: >50 minutes Time was spent: preparing to see the patient(eg.review tests), obtaining and/or reviewing separately otained hiistory, ordering medications,tests, procedures, referring, communicating with other health congregational care pastor, indepentently interpreting results, counseling the patient, care coordination and other
[2024-08-19 13:42] LABS: FIO2 28 %; Site Arterial Line
[2024-08-19 14:43] LABS: ALT 20 U/L (16-63); AST 25 U/L (15-37); Albumin 2.3 g/dL (3.4-5.0); Alkaline Phosphatase 64 U/L (46-116); Bilirubin, Direct 0.2 mg/dL (0.0-0.2); Bilirubin, Total 0.3 mg/dL (0.2-1.0); LDH 153 U/L (85-227); Total Protein 5.7 g/dL (6.4-8.2)
[2024-08-19] MEDS: DOXYCYCLINE 100 MG in Normal Saline 100 ML IVPB (15:43)
[2024-08-19] MEDS: DEXTROSE 5%-LACTATED RINGERS 1,000 ML 100 ML IV (15:52)
[2024-08-19] MEDS: PROPOFOL 1,000 MG/100 ML BTL 28.896 MG IVPB ×2 (17:12→20:46)
[2024-08-20] VITALS (77 sets, daily range): BP systolic 79–148; BP diastolic 46–117; PULSE 44–124; RESP 11–517; TEMP 36.4–37.4; O2SAT 90–100
--- NOTE | 2024-08-20 | DI.RAD_ITS ---
Exam(s) XR PORTABLE CHEST AP EXAM: XR PORTABLE CHEST AP CLINICAL HISTORY: worse hypoxia. TECHNIQUE: 2D digital imaging was performed. COMPARISON: CR,XR XR PORTABLE CHEST AP from 08/18/2024 FINDINGS: Single AP portable view. Patient remains intubated and the distal tip of the endotracheal tube is in good position approximate ly 4.5 cm above the radha. The distal tip of the right jugular central line is in good position in the lower SVC. There is an NG tube in the stomach again noted. Heart size is upper normal. The mediastinum is not widened. There are slightly increased markings in left lower lobe consistent with mild infiltrate. Remainder of the lung palmer appear clear and there are no pleural effusions. There are COPD findings. No pul monary edema. IMPRESSION: Lines and tubes remain in satisfactory position There appears to be some infiltrate in left lower lobe. No pleural effusions evident. DATA REPOSITORY: RADIATION DOSE DELIVERED:
[2024-08-20] MEDS: PROPOFOL 1,000 MG/100 ML BTL 28.896 MG IVPB ×5 (00:33→23:27)
[2024-08-20] MEDS: dexmedeTOMidine IN 0.9 % NACL 400 MCG/100 ML BTL 25.8 MCG IV ×3 (01:05→09:37)
[2024-08-20] MEDS: DEXTROSE 5%-LACTATED RINGERS 1,000 ML 100 ML IV ×3 (02:10→22:00)
[2024-08-20] MEDS: DOXYCYCLINE 100 MG in Normal Saline 100 ML IVPB ×2 (03:00→15:40)
[2024-08-20] MEDS: Normal Saline Flush 10 ML SYR IVP ×12 (04:05→19:21)
[2024-08-20 06:19] LABS: HCT 36.9 % (40.0-50.0); HGB 11.9 g/dL (13.5-17.5); MCH 27.2 pg (27.0-33.0); MCHC 32.2 % (32.0-36.0); MCV 84 fL (80-95); RBC 4.38 10^6/uL (4.36-5.78); RDW 15.8 % (11.8-14.1); WBC 12.49 10^3/uL (4.4-10.8)
[2024-08-20 06:48] LABS: ALT 15 U/L (16-63); AST 20 U/L (15-37); Alkaline Phosphatase 62 U/L (46-116); Anion Gap 8.4 mmol/L (3-11); BUN 7 mg/dL (7-18); Bilirubin, Total 0.5 mg/dL (0.2-1.0); CO2 23.6 mmol/L (21.0-32.0); CREATININE 0.8 mg/dL (0.70-1.30); Chloride 111 mmol/L (98-107); Estimated GFR 113.32 (mL/min/1.73m2); Glucose 135 mg/dL (74-106); Magnesium 1.2 mg/dL (1.8-2.4); Potassium 3.6 mmol/L (3.5-5.1); Sodium 143 mmol/L (136-145); Total Protein 5.7 g/dL (6.4-8.2)
[2024-08-20 06:49] LABS: Platelet Count 54 10^3/uL (130-400)
[2024-08-20] MEDS: fentaNYL 100 MCG/2 ML VIAL 50 MCG IVP ×4 (06:54→09:33)
[2024-08-20] MEDS: MAGNESIUM SULFATE 4 GM/100 ML BAG IV_INF (08:08)
[2024-08-20] MEDS: Pantoprazole 40 MG VIAL IVP (08:09)
[2024-08-20] MEDS: Chlorhexidine Gluconate 0.12% Mouthwash 15 ML BTL 30 ML MM ×2 (08:23→19:21)
--- NOTE | 2024-08-20 08:35 | CMPROGNOTE_ITS ---
Date of service: 08/20/24 Time of Service: 08:35 Care Management Progress Note Progress Note Text Progress Note Text: Best is intubated in the ICU, he is sedated and does not appear to be in any distress when CM attempted to meet with him. He is admitted in c/o the [place] [facility] and requires close monitoring and treatment following complications resulting from an overdose (see progress report for details.) Best was unable to come off the vent today due to agitation and hyperventilation. Plan is to try again tomorrow, if unsuccessful will need to start tube feedings, as discussed per provider and RT. CM provided a verbal update to Alesia Damon (RN regional [employer]visor [employer].) CM will continue to follow. Discharge Potential Discharge Needs: PCP F/U Appt Anticipated Barriers to Discharge: None Identified Patient/Family Education Needs: Review discharge instructions, discuss Ask Me Three Transportation: Facility Transport Plan: Best has been intubated in the ICU X 2 days. Per provider, will try to extubate again tomorrow and if unsuccessful nutrition via tube feeding will be needed. Anticipate, Best will be transported back to [facility] when medically cleared. He will follow up with the facility provider and plan of care and transport via facility vehicle with corrections officers. CM will follow. Social Determinants of Health Screening Will the Patient Participate in the Screening?: Unable to obtain
--- NOTE | 2024-08-20 09:03 | PGE_ITS ---
Date of Service Date of service: 08/20/24 Time of Service: 09:03 Assessment and Plan Assessment and plan (1) Overdose: Status: Acute Assessment and plan: - As noted in HPI, patient was in the process of senior care intake when he was scanned with a foreign body noted in his rectum which he was put in isolation, promptly ingested said object, and just before becoming unresponsive stated that it was fentanyl and cocaine. Cocaine and benzos on UDS, fentanyl pending. - Patient was found down upon EMS arrival, and patient was not intubated until brought to the emergency department - Postintubation ABG without abnormalities, stable 08/19. - Echo reassuring - Trying to extubate again, SBT this morning. - I have not observed asymmetric pupil findings initially seen in ED, but he may have had some anoxic brain injury and may benefit from MRI prior to discharge. - will need tube feeds if we aren't able to extubate today. (2) Pneumonia: Status: Acute Assessment and plan: CT on admission did show reticulonodular infiltrates. This is not VAP as was present on admission and fevers started within 24 hours of intubation. Initially on Unasyn, changed 08/20 to pip/tazo and doxy for pneumonia. Fevers responding to this, I don't think there is indication for MRSA coverage at this point. (3) Lactic acidosis: Status: Acute Assessment and plan: - Likely secondary to potentially observed seizure activity when patient first ingested substances in combination with downtime leading up to patient being intubated - Initial lactic about 15, given 3 liters fluids, normalized by 5/26 AM, anion gap closed. (4) Thrombocytopenia: Status: Chronic Assessment and plan: This appears new, but no labs since 2019 so unclear. No history noted on VITL. No cirrhosis, nl spleen on admission CT. Coags and LDH not c/w DIC or TTP type picture. Enoxaparin held 08/19, platelets stabilized (though low platelets before any heparin so not c/w HIT). B12 nl, HIV pending. (5) Hypokalemia: Status: Acute Assessment and plan: replaced potassium IV, add to fluids if we aren't able to extubate. (6) Opioid dependence on agonist therapy: Status: Acute Assessment and plan: push fentanyl prn signs of opioid withdrawal until able to resume oral methadone. Given additional during SBT. (7) DVT prophylaxis: Status: Acute Assessment and plan: holding enoxaparin with low platelets, TEDS/SCDs. (8) Hypomagnesemia: Status: Acute Assessment and plan: replace IV Subjective Subjective Interval history since last seen: Events: failed SBT 08/19 Antibiotics changed from amp/sulb to pip/tazo and miroslava Remains intubated, sedated. Suctioning lots of yellow mucous per RT. Fevers have resolved. Exam Narrative Exam Narrative: Chronically ill-appearing disheveled gentleman laying in bed, intubated and sedated. Head atraumatic other than minor skin wounds, pupils 2-3 mm and reactive dhara. heart regular rhythm, no murmur, lungs with mechanical vent sounds otherwise clear to auscultation bilaterally, abdomen soft, nondistended. extremities without edema or cyanosis, warm. Objective Last Vital Signs Temp 37.4 C 08/20/24 03:11 Pulse 58 L 08/20/24 08:25 Resp 25 H 08/20/24 08:25 BP 117/56 L 08/20/24 08:25 Pulse Ox 92 08/20/24 08:25 Laboratory Results - last 24 hr 08/19/24 08/19/24 08/20/24 11:15 13:35 05:55 WBC 12.49 H RBC 4.38 Hgb 11.9 L Hct 36.9 L MCV 84 MCH 27.2 MCHC 32.2 RDW 15.8 H Plt Count 54 L MPV PT 11.2 H INR 1.1 APTT 28.8 ABG Sample Site Arterial Line ABG pH 7.41 ABG pCO2 38 ABG pO2 81 ABG HCO3 24 ABG Total CO2 22 L ABG O2 Saturation 96 ABG Base Excess -1 FiO2 28 Sodium 143 Potassium 3.6 Chloride 111 H Carbon Dioxide 23.6 Anion Gap 8.4 BUN 7 Creatinine 0.8 Est GFR (CKD-EPI 2020) 113.32 Glucose 135 H Calcium 8.0 L Magnesium 1.2 L Total Bilirubin 0.3 0.5 Conjugated Bilirubin 0.2 AST 25 20 ALT 20 15 L Alkaline Phosphatase 64 62 Lactate Dehydrogenase 153 Total Protein 5.7 L 5.7 L Albumin 2.3 L 2.0 L Vitamin B12 462 Time Spent with Patient Time Spent with Patient: >50 minutes Time was spent: preparing to see the patient(eg.review tests), obtaining and/or reviewing separately otained hiistory, ordering medications,tests, procedures, referring, communicating with other health toddler caregiver, indepentently interpreting results, counseling the patient and care coordination
[2024-08-20] MEDS: PROPOFOL 1,000 MG/100 ML BTL 14.448 MG IVPB (10:07)
[2024-08-20 11:47] LABS: HIV-1/2 Ag & Ab Screen Negative (Negative)
[2024-08-20] MEDS: PROPOFOL 1,000 MG/100 ML BTL 20.64 MG IVPB (13:25)
[2024-08-20 15:06] LABS: Fentanyl Scr w/Rfx Confirm Positive ng/mL (<1)
[2024-08-20 17:26] LABS: BE -3 mmol/L (-2-3); HCO3 21 mmol/L (22-26); pCO2 34 mmHg (35-45); pH 7.41 (7.35-7.45); pO2 78 mmHg (80-105); sO2 96 % (95-98); tCO2 20 mmol/L (23-27)
[2024-08-20 17:28] LABS: FIO2 30 %; Site Left Radial
[2024-08-20] MEDS: fentaNYL 1,000 MCG in Normal Saline 80 ML 14 MCG IV_INF ×2 (17:58→23:39)
[2024-08-20] MEDS: VANCOMYCIN/WATER (PEG) 1.5 GM/300 ML BAG IVPB (18:13)
[2024-08-21] VITALS (67 sets, daily range): BP systolic 110–125; BP diastolic 58–69; PULSE 56–114; RESP 11–36; TEMP 36.4–37; O2SAT 91–99
--- NOTE | 2024-08-21 | DI.CT_ITS ---
Exam(s) CT HEAD WO EXAM: CT HEAD WO CLINICAL HISTORY: admitted altered/OD, difficult to wake/extubate. TECHNIQUE: Imaging Protocol: Axial computed tomography images with coronal and sagittal reformatted images were created and reviewed COMPARISON: CT CT HEAD WO from 08/18/2024 FINDINGS: There are no skull fractures. Mucosal thickening is noted in the maxillary sinuses and left frontal s inus as well as within the sphenoid sinuses. There are no fluid levels. Patient in is intubated. There is no evidence of intracranial hemorrhage, mass effect, or shift of midline structures. There are no extra-axial fluid collections. The ventricles are not enlarged or shifted and there is no blo od within the ventricular system nor within the basal cisterns. IMPRESSION: No acute intracranial findings on this noninfused CT scan of the brain. If clinically indicated follow-up MRI can be performed for added sensitivity and specificity. Paranasal sinus disease but no associated fluid levels. RADIATION DOSE DELIVERED: 927.44mGy.cm Total DLP DATA REPOSITORY: All CT scans at this facility are submitted to the National Radiology Data Registry (NRDR) Dose Index Registry (DIR) with the [employer] ([employer]). RADIATION OPTIMIZATION: All CT scans at this facility use at least one of these dose optimization te chniques: automated exposure control; mA and/or kV adjustment per patient size (includes targeted exa ms where dose is matched to clinical indication); or iterative reconstruction.
[2024-08-21] MEDS: DOXYCYCLINE 100 MG in Normal Saline 100 ML IVPB ×2 (02:47→15:50)
[2024-08-21] MEDS: PROPOFOL 1,000 MG/100 ML BTL 28.896 MG IVPB ×2 (03:13→06:56)
[2024-08-21] MEDS: Normal Saline Flush 10 ML SYR IVP ×7 (04:03→19:46)
[2024-08-21 06:15] LABS: HCT 34.4 % (40.0-50.0); HGB 10.9 g/dL (13.5-17.5); MCH 26.8 pg (27.0-33.0); MCHC 31.7 % (32.0-36.0); MCV 85 fL (80-95); MPV 12.6 fL (8.0-11.0); RBC 4.06 10^6/uL (4.36-5.78); RDW 15.8 % (11.8-14.1); RDW-SD 49.1 fL; WBC 7.12 10^3/uL (4.4-10.8)
[2024-08-21] MEDS: VANCOMYCIN 1,250 MG in Normal Saline 250 ML 166.667 MG IVPB (06:22)
[2024-08-21 06:38] LABS: ALT 14 U/L (16-63); AST 21 U/L (15-37); Albumin 1.9 g/dL (3.4-5.0); Alkaline Phosphatase 58 U/L (46-116); Anion Gap 7.9 mmol/L (3-11); BUN 6 mg/dL (7-18); Bilirubin, Total 0.4 mg/dL (0.2-1.0); CO2 26.1 mmol/L (21.0-32.0); CREATININE 0.8 mg/dL (0.70-1.30); Calcium 7.8 mg/dL (8.5-10.1); Chloride 112 mmol/L (98-107); Estimated GFR 113.32 (mL/min/1.73m2); Glucose 102 mg/dL (74-106); Magnesium 1.5 mg/dL (1.8-2.4); Potassium 3.2 mmol/L (3.5-5.1); Sodium 146 mmol/L (136-145); Total Protein 5.5 g/dL (6.4-8.2)
[2024-08-21 06:45] LABS: Platelet Count 84 10^3/uL (130-400)
[2024-08-21] MEDS: fentaNYL 1,000 MCG in Normal Saline 80 ML 14 MCG IV_INF (07:38)
[2024-08-21] MEDS: MAGNESIUM SULFATE 4 GM/100 ML BAG IV_INF (09:21)
[2024-08-21] MEDS: POTASSIUM CHLORIDE 20 MEQ/100 ML BAG 50 MEQ IV_INF (09:21)
[2024-08-21] MEDS: Pantoprazole 40 MG VIAL IVP (09:57)
--- NOTE | 2024-08-21 12:45 | PGE_ITS ---
Date of Service Date of service: 08/21/24 Time of Service: 12:45 Assessment and Plan Assessment and plan (1) Overdose: Status: Acute Assessment and plan: - As noted in HPI, patient was in the process of [place] [facility] intake when he was scanned with a foreign body noted in his rectum which he was put in isolation, promptly ingested said object, and just before becoming unresponsive stated that it was fentanyl and cocaine. Cocaine and benzos on UDS, no methadone, fentanyl pending. - Patient was found down upon EMS arrival, and patient was not intubated until brought to the emergency department, now finally extubated on day 4. - Echo reassuring - CT reassuring, non-focal neurologic exam, but if MS does not clear could still consider MRI prior to discharge. (2) Pneumonia: Status: Acute Assessment and plan: CT on admission did show reticulonodular infiltrates. This is not VAP as was present on admission and fevers started within 24 hours of intubation. Initially on Unasyn, changed 08/19 to pip/tazo and doxy for pneumonia. Fevers responding to this, but with heavy purlulent respiratory secretions vancomycin was added 08/20 Will get MRSA swab, stop vanco if negative. Day 3 of pip/tazo and day 4 of total antibiotics now. Plan to finish 5 days if respiratory status stable. Get [employer] evaluation if any issues with swallow noted. (3) Thrombocytopenia: Status: Chronic Assessment and plan: This appears new, but no labs since 2019 so unclear. No history noted on VITL. No cirrhosis, nl spleen on admission CT. Coags and LDH not c/w DIC or TTP type picture. Enoxaparin held 08/19, platelets stabilized (though low platelets before any heparin so not c/w HIT). Slowly improving. B12 nl, HIV negative. (4) Hypokalemia: Status: Acute Assessment and plan: Cotinue to replace potassium IV, added to fluids. Monitor. (5) Opioid dependence on agonist therapy: Status: Acute Assessment and plan: Methadone negative on admission UDS, no record of MOUD wiht methadone for years. Hightly likely he is dependant on street drugs, however. Continue fentanyl prn. Offer buprenorphine when he stabilizes as he can get this in the [place] [facility]. (6) DVT prophylaxis: Status: Acute Assessment and plan: holding enoxaparin with low platelets, TEDS/SCDs. (7) Hypomagnesemia: Status: Acute Assessment and plan: replace again IV Subjective Subjective Patient reports: denies diarrhea, vomiting or fever Interval history since last seen: Events: Vancomycin added to cover pneumonia in ICU Fentanyl drip ovenight, good sedation acheived CT head done given risk of brain injury and difficulty extubating, no concerning findings Extubated around 10:30 this morning Patient follows some basic commands but does not vocalize or answer questions. Exam Narrative Exam Narrative: Chronically ill-appearing disheveled gentleman laying in bed, pulling on restraints at times, extubated, prolonged grunting/throat clearing with cough. Head atraumatic other than minor skin wounds, pupils 4-5 mm and reactive dhara. heart regular rhythm, no murmur, lungs clear to auscultation bilaterally, abdom en soft, nondistended. extremities without edema or cyanosis, warm. Objective Last Vital Signs Temp 36.4 C L 08/21/24 07:30 Pulse 59 L 08/21/24 08:56 Resp 16 08/21/24 08:56 BP 118/58 L 08/21/24 08:56 Pulse Ox 95 08/21/24 11:30 Laboratory Results - last 24 hr 08/18/24 08/20/24 08/20/24 04:13 05:30 17:27 WBC RBC Hgb Hct MCV MCH MCHC RDW Plt Count MPV ABG Sample Site Cancelled Left Radial ABG pH Cancelled 7.41 ABG pCO2 Cancelled 34 L ABG pO2 Cancelled 78 L ABG HCO3 Cancelled 21 L ABG Total CO2 Cancelled 20 L ABG O2 Saturation Cancelled 96 ABG Base Excess Cancelled -3 L Oxygen Liter Flow Cancelled FiO2 Cancelled 30 Sodium Potassium Chloride Carbon Dioxide Anion Gap BUN Creatinine Est GFR (CKD-EPI 2020) Glucose Calcium Magnesium Total Bilirubin AST ALT Alkaline Phosphatase Total Protein Albumin Urine Fentanyl Screen Positive A 08/21/24 05:45 WBC 7.12 RBC 4.06 L Hgb 10.9 L Hct 34.4 L MCV 85 MCH 26.8 L MCHC 31.7 L RDW 15.8 H Plt Count 84 L D MPV 12.6 H ABG Sample Site ABG pH ABG pCO2 ABG pO2 ABG HCO3 ABG Total CO2 ABG O2 Saturation ABG Base Excess Oxygen Liter Flow FiO2 Sodium 146 H Potassium 3.2 L Chloride 112 H Carbon Dioxide 26.1 Anion Gap 7.9 BUN 6 L Creatinine 0.8 Est GFR (CKD-EPI 2020) 113.32 Glucose 102 Calcium 7.8 L Magnesium 1.5 L Total Bilirubin 0.4 AST 21 ALT 14 L Alkaline Phosphatase 58 Total Protein 5.5 L Albumin 1.9 L Urine Fentanyl Screen Time Spent with Patient Time Spent with Patient: >50 minutes Time was spent: preparing to see the patient(eg.review tests), obtaining and/or reviewing separately otained hiistory, ordering medications,tests, procedures, referring, communicating with other health patient care specialist, indepentently interpreting results, counseling the patient and care coordination
[2024-08-21] MEDS: fentaNYL 100 MCG/2 ML VIAL IVP ×5 (12:50→23:29)
--- NOTE | 2024-08-21 13:15 | PDOC.CMPRO ---
Date of service: 08/21/24 Time of Service: 13:15 Care Management Progress Note Progress Note Text Progress Note Text: Best was extubated this morning. He has been agitated and has been spitting at staff. He is restrained to the bed and his air defense artillery officer is with him. He has been trying to get out of bed and pull at his lines. He reportedly has been doing some communicating, but he did not answer any of CM's questions. Discharge Potential Discharge Needs: PCP F/U Appt Anticipated Barriers to Discharge: None Identified Patient/Family Education Needs: Review discharge instructions, discuss Ask Me Three Transportation: Facility Transport Plan: Best will transport back to the correctional facility once he is medically stable. He will f/u with the facility provider and continue per his plan of care. He will transport via facility vehicle with the air defense artillery officer. CM will continue to follow. Social Determinants of Health Screening Will the Patient Participate in the Screening?: Unable to obtain
[2024-08-21] MEDS: dexmedeTOMidine IN 0.9 % NACL 400 MCG/100 ML BTL 7.65 MCG IV (14:01)
[2024-08-21] MEDS: POTASSIUM CHLORIDE/D5-0.45NACL 1,000 ML 100 MEQ IV (17:01)
[2024-08-21] MEDS: VANCOMYCIN 1,250 MG in Normal Saline 250 ML 167 MG IVPB (19:05)
[2024-08-21] MEDS: dexmedeTOMidine IN 0.9 % NACL 400 MCG/100 ML BTL 28.688 MCG IV ×2 (20:19→23:30)
[2024-08-21] MEDS: LORazepam 20 MG/10 ML VIAL IVP (22:15)
[2024-08-22] VITALS (55 sets, daily range): BP systolic 114–166; BP diastolic 74–111; PULSE 39–90; RESP 13–29; TEMP 36.7–37.3; O2SAT 92–98
[2024-08-22] MEDS: fentaNYL 100 MCG/2 ML VIAL IVP ×7 (01:36→21:57)
[2024-08-22] MEDS: LORazepam 20 MG/10 ML VIAL IVP ×3 (02:30→16:33)
[2024-08-22] MEDS: DOXYCYCLINE 100 MG in Normal Saline 100 ML IVPB ×2 (02:33→15:41)
[2024-08-22] MEDS: POTASSIUM CHLORIDE/D5-0.45NACL 1,000 ML 100 MEQ IV (02:35)
[2024-08-22] MEDS: dexmedeTOMidine IN 0.9 % NACL 400 MCG/100 ML BTL 28.688 MCG IV (02:53)
[2024-08-22] MEDS: Normal Saline Flush 10 ML SYR IVP ×3 (05:23→20:00)
[2024-08-22] MEDS: VANCOMYCIN 1,250 MG in Normal Saline 250 ML 167.667 MG IVPB (06:10)
[2024-08-22] MEDS: dexmedeTOMidine IN 0.9 % NACL 400 MCG/100 ML BTL 24.863 MCG IV (06:15)
[2024-08-22 06:44] LABS: HCT 35.4 % (40.0-50.0); HGB 11.6 g/dL (13.5-17.5); MCH 27.2 pg (27.0-33.0); MCHC 32.8 % (32.0-36.0); MCV 83 fL (80-95); MPV 11.2 fL (8.0-11.0); Platelet Count 136 10^3/uL (130-400); RBC 4.26 10^6/uL (4.36-5.78); RDW 15.6 % (11.8-14.1); RDW-SD 47.5 fL; WBC 8.22 10^3/uL (4.4-10.8)
[2024-08-22 07:05] LABS: Anion Gap 10.3 mmol/L (3-11); BUN 7 mg/dL (7-18); CO2 22.7 mmol/L (21.0-32.0); CREATININE 0.8 mg/dL (0.70-1.30); Calcium 7.7 mg/dL (8.5-10.1); Chloride 114 mmol/L (98-107); Estimated GFR 113.32 (mL/min/1.73m2); Glucose 133 mg/dL (74-106); Potassium 3.6 mmol/L (3.5-5.1); Sodium 147 mmol/L (136-145)
[2024-08-22 07:06] LABS: Magnesium 1.7 mg/dL (1.8-2.4)
[2024-08-22 08:53] LABS: Fentanyl Confirmation >40 ng/mL (<2); Norfentanyl Confirmation >200 ng/mL (<10)
[2024-08-22] MEDS: MAGNESIUM SULFATE 2 GM/50 ML BAG IV_INF (10:43)
[2024-08-22] MEDS: Pantoprazole 40 MG VIAL IVP (10:44)
--- NOTE | 2024-08-22 12:13 | CMPROGNOTE_ITS ---
Date of service: 08/22/24 Time of Service: 12:13 Care Management Progress Note Progress Note Text Progress Note Text: Eddie is much more alert today. He is speaking and eating, and has been much better behaved. He is still in 4 point restraints, but they have been loosened. Eddie asked CM to stay with him and talk for a bit, and this was done. His siblings are expected to visit at 1:30 today, and this seems very important to him. PT consult was ordered today and CM let Eddie know about this. He did not seem to understand what was said. CM let him know it meant he could get out of bed for a little bit. He was pleased about that. Eddie asked CM if she could get him to the long-term. It was discussed that he is still too sick, but he is improving and it won't be long. Discharge Potential Discharge Needs: PCP F/U Appt Anticipated Barriers to Discharge: None Identified Patient/Family Education Needs: Review discharge instructions, discuss Ask Me Three Transportation: Facility Transport (corrections) Plan: [facility] to [facility] correctional facility once he is medically stable. He will f/u with the facility provider and continue per his plan of care. He will transport via facility vehicle with the digital marketing officer. CM will continue to follow. Social Determinants of Health Screening Will the Patient Participate in the Screening?: Unable to obtain
--- NOTE | 2024-08-22 14:04 | PGE_ITS ---
Date of Service Date of service: 08/22/24 Time of Service: 14:04 Assessment and Plan Assessment and plan (1) Overdose: Status: Acute Assessment and plan: - As noted in HPI, patient was in the process of shelter intake when he was scanned with a foreign body noted in his rectum which he was put in isolation, promptly ingested said object, and just before becoming unresponsive stated that it was fentanyl and cocaine. Cocaine and benzos on UDS, no methadone, fentanyl pending. - Patient was found down upon EMS arrival, and patient was not intubated until brought to the emergency department, now finally extubated on day 4. - Echo reassuring - CT reassuring, non-focal neurologic exam, MS clearing so I don't think MRI indicated. - Sister worried about foreign body on admission CT. I talked to Dr. Kena castaneda who did not feel there was a significant foreign body or concern for retention. (2) Pneumonia: Status: Acute Assessment and plan: CT on admission did show reticulonodular infiltrates. This is not VAP as was present on admission and fevers started within 24 hours of intubation. Initially on Unasyn, changed 08/19 to pip/tazo and doxy for pneumonia. Fevers responding to this, but with heavy purlulent respiratory secretions vancomycin was added 08/20 MRSA swab pending, stop vanco if negative. Day 4 of pip/tazo and day 5 of total antibiotics now. Plan to finish 5 days then stop 08/23 (3) Thrombocytopenia: Status: Chronic Assessment and plan: This appears new, but no labs since 2019 so unclear. No history noted on VITL. No cirrhosis, nl spleen on admission CT. Coags and LDH not c/w DIC or TTP type picture. Enoxaparin held 08/19-, platelets improved so can resume. B12 nl, HIV negative. (4) Hypokalemia: Status: Acute Assessment and plan: Low K+ and Mg++. Cotinue to replace in fluids and Mg bolus today. Follow (5) Opioid dependence on agonist therapy: Status: Acute Assessment and plan: Methadone negative on admission UDS, no record of MOUD wiht methadone for years. Highly likely he is dependant on street drugs, however, and he confirms regular heroin use. Try to limit fentanyl prn at this point. Offer buprenorphine before discharge as he can get this in the shelter. (6) DVT prophylaxis: Status: Acute Assessment and plan: resume enoxaparin (7) Agitation: Status: Acute Assessment and plan: He is improving but still soft restrainst because of some confusion, paranoia, pulling on lines. Denies psych meds at home. States uses heroin for anxiety Getting lorazepam and precedex here, try to taper off precedex so he can leave the ICU. Try quetiapine after confirming QT okay. Also can use prn clonidine Subjective Subjective Patient reports: denies nausea, vomiting, shortness of breath or fever Interval history since last seen: Events: Extubated 08/21. Prededex restarted due to ongoing agitation Hungry this morning, tolerated clears and thin liquids without difficulty, progressed diet He feels okay. No abdominal or chest pain. His throat hurts, hurts some to swallow. +BM. Has voided since vann removed. He is bothered by his IJ line, thinks the officer is poking or shooting him with something there though this has been explained. Exam Narrative Exam Narrative: Chronically ill-appearing disheveled gentleman sitting up in bed, alert but not oriented. Still pulling on restraints at times, but generally following commands. Head atraumatic other than minor skin wounds, pupils ~3 mm and reactive dhara. heart regular rhythm, no murmur, lungs clear to auscultation bilaterally, abdomen soft, nondistended. extremities without edema or cyanosis, warm. Objective Last Vital Signs Temp 37.3 C 08/22/24 11:34 Pulse 48 L 08/22/24 08:30 Resp 25 H 08/22/24 08:30 BP 155/110 H 08/22/24 06:49 Pulse Ox 95 08/22/24 08:30 Laboratory Results - last 24 hr 08/18/24 08/22/24 04:13 05:30 WBC 8.22 RBC 4.26 L Hgb 11.6 L Hct 35.4 L MCV 83 MCH 27.2 MCHC 32.8 RDW 15.6 H Plt Count 136 D MPV 11.2 H Sodium 147 H Potassium 3.6 Chloride 114 H Carbon Dioxide 22.7 Anion Gap 10.3 BUN 7 Creatinine 0.8 Est GFR (CKD-EPI 2020) 113.32 Glucose 133 H Calcium 7.7 L Magnesium 1.7 L Ur Fentanyl Confirm >40 A Ur Norfentanyl Confirm >200 A Time Spent with Patient Time Spent with Patient: >50 minutes Time was spent: preparing to see the patient(eg.review tests), obtaining and/or reviewing separately otained hiistory, ordering medications,tests, procedures, referring, communicating with other health palliative care specialist, indepentently interpreting results, counseling the patient and care coordination
[2024-08-22] MEDS: Enoxaparin 40 MG/0.4 ML SYR SC (14:37)
[2024-08-22 15:20] LABS: Vancomycin, Random 18.4 ug/mL
--- NOTE | 2024-08-22 15:40 | PT.INIE ---
PT Notes Visit Reasons: Unintentional Overdose Inpatient Physical Therapy Evaluation Date: 08/22/24 Referring Doctor: Dr. Hdez PT Orders: PT CONSULT: Fall safety assessment Precautions: Fall precautions, incarcerated Patient Profile/Admitting Diagnosis: Unintentional Overdose Subjective: Pt admitted following an overdose. He was then intubated for 4 days before being extubated yesterday. He has a classifications officer cc/cm with him in his room today. He is from [facility]. Notes no previous difficulty with mobility or AD use. He will be going to a facility without any stairs after being d/c'd. Objective: General Observation: soft restraints on upper body, hard restraints on lower body Mental Status: A+Ox4 but does occasionally require question repeats Pain: Denies Vital Signs: monitored by nursing ROM: Full and equal UE ROM bilaterally Strength: Able to perform bilateral SLRs in supine Able to perform seated marching and LAQs bilaterally Sensation: Notes full feeling in bilat LEs UE/LE coordination testing normal bilaterally Bed Mobility/Transfers: supine to sitting w/SBA sitting to supine w/SBA sit to stand w/SBA stand to sit w/SBA Gait: ambulates 100 ft w/RW and CGA ambulates 20 ft w/o any form of AD and CGA Balance: able to perform static marching without any UE support Special Tests: Mobility Limitations Standardized Measure [facility] 6 clicks Basic Mobility Inpatient Short Form: Raw Score: 22 CMS Score: 20.91% Informed Consent/Education: Patient instructed in purpose of PT consult and plan of care. Assessment: Patient is currently moving well and is able to be d/c'd to his facility when medically cleared. He did not demonstrate many balance or coordination deficits today. He did well without using any form of AD. He will likely be able to be d/c'd without any form of AD but may need to be assessed again tomorrow prior to leaving if his status worsens to see if he will need a walker. He had no difficulty standing up or moving around in bed. Patient is assessed as a [x] Moderate 25234 complexity based on the following: History: Moderate Examination: Moderate Presentation: Moderate Decision Making: Moderate Goals: Goals X1 week 1. Gait - ambulate >100 ft w/o the use of any form of AD Plan of Care/Treatment Plan: 1-2x/day, 7 days/week x 1 week. Plan of care has been reviewed with the LAND ACQUISITION SPECIALIST providing the service under Physical Therapy direction. Initiate Physical Therapy intervention for strengthening, bed mobility, transfers, gait, stairs, balance training, use of assistive device. DISCHARGE RECOMMENDATIONS: D/c'd to his facility without any further services - need to determine RW vs no RW TREATMENT CODE/TIME: Mod Eval x1 (14204) - 30 min
[2024-08-22] MEDS: QUEtiapine 50 MG TAB 25 MG PO (16:16)
[2024-08-22 17:37] LABS: MRSA PCR Negative (Negative)
[2024-08-22] MEDS: cloNIDine 0.1 MG TAB PO (20:00)
[2024-08-22] MEDS: Haloperidol 5 MG TAB PO ×2 (20:43→21:18)
[2024-08-23] VITALS (22 sets, daily range): BP systolic 136–154; BP diastolic 84–101; PULSE 53–77; RESP 16–40; TEMP 36.7–38.3; O2SAT 97
[2024-08-23] MEDS: fentaNYL 100 MCG/2 ML VIAL IVP ×3 (00:08→21:03)
[2024-08-23] MEDS: Normal Saline Flush 10 ML SYR IVP ×4 (00:08→20:08)
[2024-08-23] MEDS: Acetaminophen 325 MG TAB PO ×2 (00:42→16:50)
[2024-08-23] MEDS: Haloperidol 5 MG/ML VIAL 4 MG IM/IV (02:43)
[2024-08-23 03:12] LABS: HCT 36.6 % (40.0-50.0); HGB 11.9 g/dL (13.5-17.5); MCH 26.6 pg (27.0-33.0); MCHC 32.5 % (32.0-36.0); MCV 82 fL (80-95); MPV 10.9 fL (8.0-11.0); Platelet Count 170 10^3/uL (130-400); RBC 4.48 10^6/uL (4.36-5.78); RDW 15.2 % (11.8-14.1); RDW-SD 45.4 fL; WBC 9.44 10^3/uL (4.4-10.8)
[2024-08-23 03:15] LABS: Anion Gap 12.4 mmol/L (3-11); BUN 7 mg/dL (7-18); CO2 21.6 mmol/L (21.0-32.0); Calcium 8.3 mg/dL (8.5-10.1); Chloride 111 mmol/L (98-107); Estimated GFR 96.37 (mL/min/1.73m2); Glucose 98 mg/dL (74-106); Magnesium 1.6 mg/dL (1.8-2.4); Potassium 3.6 mmol/L (3.5-5.1); Sodium 145 mmol/L (136-145)
[2024-08-23] MEDS: Enoxaparin 40 MG/0.4 ML SYR SC (08:45)
[2024-08-23] MEDS: cloNIDine 0.1 MG TAB PO ×3 (13:05→21:00)
[2024-08-23] MEDS: MORPHine IR 15 MG TAB PO (14:34)
--- NOTE | 2024-08-23 14:49 | W.PM.PROGNOT ---
Date of Service Date of service: 08/23/24 Time of Service: 14:49 Assessment and Plan Assessment and plan (1) Dystonic movements: Status: Acute Assessment and plan: Did d/w Neuro over the telephone, Dr Mesa who recommends benadryl/thiamine/magnesium. Will start with IM benadryl and monitor response. Will order CK as well (2) Overdose: Status: Acute Assessment and plan: - As noted in HPI, patient was in the process of intermediate intake when he was scanned with a foreign body noted in his rectum which he was put in isolation, promptly ingested said object, and just before becoming unresponsive stated that it was fentanyl and cocaine. Cocaine and benzos on UDS, no methadone, fentanyl pending. - Patient was found down upon EMS arrival, and patient was not intubated until brought to the emergency department, now finally extubated on day 4. - Echo reassuring - CT reassuring, non-focal neurologic exam, MS clearing so I don't think MRI indicated. - Sister worried about foreign body on admission CT. I talked to Dr. Escudero radiology who did not feel there was a significant foreign body or concern for retention. (3) Pneumonia: Status: Acute Assessment and plan: CT on admission did show reticulonodular infiltrates. This is not VAP as was present on admission and fevers started within 24 hours of intubation. Initially on Unasyn, changed 08/19 to pip/tazo and doxy for pneumonia. Fevers responding to this, but with heavy purlulent respiratory secretions vancomycin was added 08/20 MRSA swab pending, stop vanco if negative. Day 4 of pip/tazo and day 5 of total antibiotics now. Plan to finish 5 days then stop 08/2308/23/24 Completed abx course (4) Thrombocytopenia: Status: Chronic Assessment and plan: This appears new, but no labs since 2019 so unclear. No history noted on VITL. No cirrhosis, nl spleen on admission CT. Coags and LDH not c/w DIC or TTP type picture. Enoxaparin held 08/19-, platelets improved so can resume. B12 nl, HIV negative. (5) Hypokalemia: Status: Acute Assessment and plan: Low K+ and Mg++. Cotinue to replace in fluids and Mg bolus today. Follow 08/23/24 low k has resolved and mg improving. CW mag replacement (6) Opioid dependence on agonist therapy: Status: Acute Assessment and plan: Methadone negative on admission UDS, no record of MOUD wiht methadone for years. Highly likely he is dependant on street drugs, however, and he confirms regular heroin use. Try to limit fentanyl prn at this point. Offer buprenorphine before discharge as he can get this in the intermediate. (7) DVT prophylaxis: Status: Acute Assessment and plan: resume enoxaparin (8) Agitation: Status: Acute Assessment and plan: He is improving but still soft restrainst because of some confusion, paranoia, pulling on lines. Denies psych meds at home. States uses heroin for anxiety Getting lorazepam and precedex here, try to taper off precedex so he can leave the ICU. Try quetiapine after confirming QT okay. Also can use prn clonidine Subjective Subjective Interval history since last seen: Pt seen and examined in his room this am. POC discussed with Dr Mesa (neuro) who believes this can be acute dystonia vs NMS. He does recommend thiamine and magnesium as well. Also, recommended ck level Exam Narrative Exam Narrative: Chronically ill-appearing disheveled gentleman sitting up in bed, alert but not oriented. Still pulling on restraints at times, but generally following commands. Head atraumatic other than minor skin wounds, pupils ~3 mm and reactive dhara. heart regular rhythm, no murmur, lungs clear to auscultation bilaterally, abdomen soft, nondistended. extremities without edema or cyanosis, warm. Dystonic activity in all extremities Objective Last Vital Signs Temp 36.7 C 08/23/24 11:07 Pulse 75 08/22/24 20:01 Resp 16 08/22/24 23:30 BP 158/98 H 08/22/24 20:01 Pulse Ox 95 08/22/24 08:30 Laboratory Results - last 24 hr 08/22/24 08/22/24 08/23/24 14:00 14:39 02:58 WBC 9.44 RBC 4.48 Hgb 11.9 L Hct 36.6 L MCV 82 MCH 26.6 L MCHC 32.5 RDW 15.2 H Plt Count 170 MPV 10.9 Sodium 145 Potassium 3.6 Chloride 111 H Carbon Dioxide 21.6 Anion Gap 12.4 H BUN 7 Creatinine 1.0 Est GFR (CKD-EPI 2020) 96.37 Glucose 98 Calcium 8.3 L Magnesium 1.6 L Random Vancomycin 18.4 MRSA (TEM-PCR) Negative Time Spent with Patient Time Spent with Patient: 25-34 minutes Time was spent: preparing to see the patient(eg.review tests), obtaining and/or reviewing separately otained hiistory, ordering medications,tests, procedures, referring, communicating with other health skin care instructor, indepentently interpreting results, counseling the patient and care coordination
[2024-08-23] MEDS: diphenhydrAMINE 50 MG/ML VIAL IM (15:00)
--- NOTE | 2024-08-23 16:31 | PT.INNT ---
PT Notes Visit Reasons: Unintentional Overdose Pt not available for treatment having Telehealth visit with Neurology
[2024-08-23 16:49] LABS: Creatine Kinase 3118 U/L (39-308)
[2024-08-23] MEDS: diphenhydrAMINE 50 MG/ML VIAL 25 MG IVP ×2 (17:23→23:55)
[2024-08-23] MEDS: Normal Saline 1,000 ML 150 ML IV (17:26)
[2024-08-23] MEDS: Thiamine 100 MG TAB PO (17:59)
[2024-08-23] MEDS: Magnesium Oxide 400 MG TAB PO (20:04)
[2024-08-23] MEDS: ACETAMINOPHEN 1,000 MG/100 ML BAG 400 MG IVPB (20:11)
[2024-08-24] VITALS (39 sets, daily range): BP systolic 143–166; BP diastolic 70–107; PULSE 42–58; RESP 12–31; TEMP 36.7–38.3; O2SAT 95–100
[2024-08-24] MEDS: fentaNYL 100 MCG/2 ML VIAL IVP (00:30)
[2024-08-24] MEDS: Normal Saline 1,000 ML 150 ML IV ×4 (00:54→22:46)
[2024-08-24] MEDS: ACETAMINOPHEN 1,000 MG/100 ML BAG 400 MG IVPB ×3 (03:34→20:30)
[2024-08-24] MEDS: diphenhydrAMINE 50 MG/ML VIAL 25 MG IVP ×2 (05:30→12:32)
[2024-08-24 06:35] LABS: Abs Immature Grans 0.04 10^3/uL (0.0-0.06); Absolute Basophil Count 0.04 10^3/uL (0.0-0.2); Absolute Eosinophil Count 0.08 10^3/uL (0.0-0.7); Absolute Lymphocyte Count 2.29 10^3/uL (1.2-3.4); Absolute Neutrophil Count 4.33 10^3/uL (1.2-6.7); Basophils % 0.5 %; Eosinophils % 1.1 %; HCT 31.2 % (40.0-50.0); HGB 10.6 g/dL (13.5-17.5); Immature Grans % 0.5 %; MCH 27.5 pg (27.0-33.0); MCV 81 fL (80-95); Monocytes % 8.1 %; Neutrophils % 58.8 %; RBC 3.86 10^6/uL (4.36-5.78); RDW 15.7 % (11.8-14.1); RDW-SD 46.2 fL; WBC 7.38 10^3/uL (4.4-10.8)
[2024-08-24 07:05] LABS: ALT 28 U/L (16-63); AST 84 U/L (15-37); Albumin 2.5 g/dL (3.4-5.0); Alkaline Phosphatase 52 U/L (46-116); Anion Gap 14.6 mmol/L (3-11); BUN 9 mg/dL (7-18); Bilirubin, Total 0.5 mg/dL (0.2-1.0); CO2 19.4 mmol/L (21.0-32.0); CREATININE 0.6 mg/dL (0.70-1.30); Chloride 112 mmol/L (98-107); Glucose 97 mg/dL (74-106); Potassium 3.1 mmol/L (3.5-5.1); Sodium 146 mmol/L (136-145); Total Protein 6.2 g/dL (6.4-8.2)
[2024-08-24 07:12] LABS: Diff Comment Diff Reviewed; RBC Morphology Normal
[2024-08-24] MEDS: Magnesium Oxide 400 MG TAB PO ×2 (07:58→20:09)
[2024-08-24] MEDS: Thiamine 100 MG TAB PO (07:59)
[2024-08-24] MEDS: Enoxaparin 40 MG/0.4 ML SYR SC (07:59)
[2024-08-24] MEDS: Normal Saline Flush 10 ML SYR IVP (08:12)
[2024-08-24] MEDS: Potassium Chloride 20 MEQ TABCR 40 MEQ PO ×2 (09:50→17:45)
[2024-08-24 10:02] LABS: Creatine Kinase 1185 U/L (39-308)
[2024-08-24] MEDS: cloNIDine 0.1 MG TAB PO ×2 (10:04→15:54)
--- NOTE | 2024-08-24 14:35 | PGE_ITS ---
Date of Service Date of service: 08/24/24 Time of Service: 14:35 Assessment and Plan Assessment and plan (1) Dystonic movements: Status: Acute Assessment and plan: Did d/w Neuro over the telephone, Dr Mesa who recommends benadryl/thiamine/magnesium. Will start with IM benadryl and monitor response. Will order CK as well 08/24/24 CK is much improved. Pt responded well to benadryl. Will change to PO (2) Overdose: Status: Acute Assessment and plan: - As noted in HPI, patient was in the process of group home intake when he was scanned with a foreign body noted in his rectum which he was put in isolation, promptly ingested said object, and just before becoming unresponsive stated that it was fentanyl and cocaine. Cocaine and benzos on UDS, no methadone, fentanyl pending. - Patient was found down upon EMS arrival, and patient was not intubated until brought to the emergency department, now finally extubated on day 4. - Echo reassuring - CT reassuring, non-focal neurologic exam, MS clearing so I don't think MRI indicated. - Sister worried about foreign body on admission CT. I talked to Dr. Escudero radiology who did not feel there was a significant foreign body or concern for retention. (3) Pneumonia: Status: Acute Assessment and plan: CT on admission did show reticulonodular infiltrates. This is not VAP as was present on admission and fevers started within 24 hours of intubation. Initially on Unasyn, changed 08/19 to pip/tazo and doxy for pneumonia. Fevers responding to this, but with heavy purlulent respiratory secretions vancomycin was added 08/20 MRSA swab pending, stop vanco if negative. Day 4 of pip/tazo and day 5 of total antibiotics now. Plan to finish 5 days then stop 08/2308/23/24 Completed abx course (4) Thrombocytopenia: Status: Chronic Assessment and plan: This appears new, but no labs since 2019 so unclear. No history noted on VITL. No cirrhosis, nl spleen on admission CT. Coags and LDH not c/w DIC or TTP type picture. Enoxaparin held 08/19-, platelets improved so can resume. B12 nl, HIV negative. (5) Hypokalemia: Status: Acute Assessment and plan: Low K+ and Mg++. Cotinue to replace in fluids and Mg bolus today. Follow 08/23/24 low k has resolved and mg improving. CW mag replacement (6) Opioid dependence on agonist therapy: Status: Acute Assessment and plan: Methadone negative on admission UDS, no record of MOUD wiht methadone for years. Highly likely he is dependant on street drugs, however, and he confirms regular heroin use. Try to limit fentanyl prn at this point. Offer buprenorphine before discharge as he can get this in the group home. (7) DVT prophylaxis: Status: Acute Assessment and plan: resume enoxaparin (8) Agitation: Status: Acute Assessment and plan: He is improving but still soft restrainst because of some confusion, paranoia, pulling on lines. Denies psych meds at home. States uses heroin for anxiety Getting lorazepam and precedex here, try to taper off precedex so he can leave the ICU. Try quetiapine after confirming QT okay. Also can use prn clonidine Subjective Subjective Interval history since last seen: Pt seen and examined in his room. Pt is much more alert and appropriate today. Plan on downgrading Exam Narrative Exam Narrative: Chronically ill-appearing disheveled gentleman sitting up in bed, alert but not oriented. soft restraints off in BUE, cuffs in BLE Head atraumatic other than minor skin wounds, pupils ~3 mm and reactive dhara. heart regular rhythm, no murmur, lungs clear to auscultation bilaterally, abdomen soft, nondistended. extremities without edema or cyanosis, warm. RLQ ecchymotic region Objective Last Vital Signs Temp 37.9 C H 08/24/24 13:37 Pulse 47 L 08/24/24 12:47 Resp 30 H 08/24/24 13:00 BP 154/98 H 08/24/24 13:37 Pulse Ox 97 08/24/24 13:37 Laboratory Results - last 24 hr 08/23/24 08/24/24 08/24/24 16:15 05:36 09:24 WBC 7.38 RBC 3.86 L Hgb 10.6 L Hct 31.2 L MCV 81 MCH 27.5 MCHC 34.0 RDW 15.7 H Plt Count MPV Immature Gran % 0.5 Neutrophils % 58.8 Lymphocytes % 31.0 Monocytes % 8.1 Eosinophils % 1.1 Basophils % 0.5 Nucleated RBC % 0.0 Absolute Neutrophils 4.33 Absolute Lymphocytes 2.29 Absolute Monocytes 0.60 Absolute Eosinophils 0.08 Absolute Basophils 0.04 RBC Morphology Normal Sodium 146 H Potassium 3.1 L Chloride 112 H Carbon Dioxide 19.4 L Anion Gap 14.6 H BUN 9 Creatinine 0.6 L Est GFR (CKD-EPI 2020) 123.60 Glucose 97 Calcium 8.0 L Total Bilirubin 0.5 AST 84 H ALT 28 Alkaline Phosphatase 52 Creatine Kinase 3118 H 1185 H Total Protein 6.2 L Albumin 2.5 L Time Spent with Patient Time Spent with Patient: 25-34 minutes Time was spent: preparing to see the patient(eg.review tests), obtaining and/or reviewing separately otained hiistory, ordering medications,tests, procedures, referring, communicating with other health director career services, indepentently interpreting results, counseling the patient and care coordination
[2024-08-24] MEDS: Acetaminophen 325 MG TAB PO (15:53)
--- NOTE | 2024-08-24 16:13 | W.PC.ACHO ---
Registration Status: Primary Language: Preferred Language: ED Information & Data Chief Complaint OD/Poison 08/18/24 06:27 Chief Complaint OD/Poison 08/18/24 05:10 Triage Note BIBEMS from correction. 08/18/24 03:57 Incarcerated ~2230 for illicit substance use, noted to be 'packing' illicit more substances by correction staff when scanned. unpacked' per CO but then reportedly ingested what was suspected to be ' an eightball of cocaine and some percocets'. Progressive deterioration in LOC. Spastic tonic/clonic movements and not responsive to voice or stimulation. Pupils dialated and minimally responsive 6mm. Medical / Surgical History (Last Reviewed 08/11/18 @ 16:32 by Renetta Mae DO) Seizure (Last Updated 08/11/18 @ 16:34 by Renetta Mae DO) History of surgery on extremity Most Recent Vital Signs Temperature 36.8 C 08/24/24 15:37 Temperature Source Temporal Artery Scan 08/24/24 15:37 Pulse 55 L 08/24/24 15:37 Pulse 48 L 08/24/24 14:40 Respiratory Rate 18 08/24/24 15:37 Respiratory Effort Mechanically Ventilated 08/21/24 07:30 Respiratory Depth Normal 08/18/24 07:00 Respiratory Pattern Normal 08/18/24 07:00 Blood Pressure 166/107 H 08/24/24 15:37 Blood Pressure Mean 126 08/24/24 15:37 Blood Pressure Position Supine 08/18/24 03:57 Pulse Oximetry 98 08/24/24 15:37 Respiratory End-tidal CO2 32 08/21/24 08:56 Oxygen Delivery Method Room Air 08/24/24 15:37 Oxygen Flow Rate 0 08/24/24 15:37 Fraction of Inspired Oxygen (FIO2) 30 08/21/24 08:56 End Tidal Co2 15 08/18/24 03:57 Pain Level 3 08/24/24 15:53 Comment rn notifed 08/24/24 15:37 Arterial Systolic 167 08/21/24 22:30 Arterial Diastolic 112 08/21/24 22:30 Arterial Mean 139 08/21/24 22:30 Allergies No Known Allergies Allergy (Unverified 08/11/18 13:01) Active Medications Generic Name Dose Route Start Last Admin Trade Name Freq PRN Reason Stop Dose Admin Acetaminophen 0 mg 08/18/24 07:30 08/24/24 15:53 Acetaminophen 325 Mg Tab PO 650 mg Q4H PRN PRN Administration Clonidine 0.1 mg 08/22/24 15:33 08/24/24 15:54 Clonidine 0.1 Mg Tab PO 0.1 mg TID PRN Administration Agitation Enoxaparin Sodium 40 mg 08/22/24 12:00 08/24/24 07:59 Enoxaparin 40 Mg/0.4 Ml Syr SC 40 mg DAILY GIOVANNA Administration Fentanyl 100 mcg 08/21/24 06:54 08/24/24 00:30 Fentanyl 100 Mcg/2 Ml Vial IVP 100 mcg Q1H PRN PRN Administration Acetaminophen 1,000 mg in 100 mls @ 400 mls/hr 08/18/24 22:57 08/24/24 10:20 Ofirmev IVPB Infused Q6H PRN PRN Infusion Sodium Chloride 1,000 mls @ 150 mls/hr 08/23/24 17:15 08/24/24 15:54 Saline 1000ml Bag IV 150 mls/hr INFUSION GIOVANNA Administration Magnesium Oxide 400 mg 08/23/24 20:00 08/24/24 07:58 Magnesium Oxide 400 Mg Tab PO 400 mg BID GIOVANNA Administration Sodium Chloride 0 ml 08/18/24 03:56 08/23/24 17:24 Normal Saline Flush 10 Ml Syr IVP 20 ml PRN PRN Administration Sodium Chloride 0 ml 08/18/24 08:30 08/24/24 08:12 Normal Saline Flush 10 Ml Syr IVP 20 ml BID GIOVANNA Administration Thiamine HCl 100 mg 08/23/24 18:30 08/24/24 07:59 Thiamine 100 Mg Tab PO 100 mg DAILY GIOVANNA Administration IV IV Catheter Type [Left upper Peripheral IV arm] IV Catheter Type [Internal Triple Lumen Subclavian Jugular] IV Catheter Type [Right Tibia] IO (Intraosseous) IV Catheter Type [Right Peripheral IV Antecubital] IV Catheter Gauge [Left upper 18 arm] IV Catheter Gauge [Right Tibia 25 ] IV Catheter Gauge [Right 18 Antecubital] Diagnostics 08/24/24 08/24/24 08/23/24 Range/Units 09:24 05:36 16:15 WBC 7.38 (4.4-10.8) 10^3/uL RBC 3.86 L (4.36-5.78) 10^6/uL Hgb 10.6 L (13.5-17.5) g/dL Hct 31.2 L (40.0-50.0) % MCV 81 (80-95) fL MCH 27.5 (27.0-33.0) pg MCHC 34.0 (32.0-36.0) % RDW 15.7 H (11.8-14.1) % Plt Count (130-400) 10^3/uL MPV (8.0-11.0) fL Immature Gran % 0.5 % Neutrophils % 58.8 % Lymphocytes % 31.0 % Monocytes % 8.1 % Eosinophils % 1.1 % Basophils % 0.5 % Nucleated RBC % 0.0 (0.0-0.3) % Absolute Neutrophils 4.33 (1.2-6.7) 10^3/uL Absolute Lymphocytes 2.29 (1.2-3.4) 10^3/uL Absolute Monocytes 0.60 (0.1-0.8) 10^3/uL Absolute Eosinophils 0.08 (0.0-0.7) 10^3/uL Absolute Basophils 0.04 (0.0-0.2) 10^3/uL RBC Morphology Normal Sodium 146 H (136-145) mmol/L Potassium 3.1 L (3.5-5.1) mmol/L Chloride 112 H (98-107) mmol/L Carbon Dioxide 19.4 L (21.0-32.0) mmol/L Anion Gap 14.6 H (3-11) mmol/L BUN 9 (7-18) mg/dL Creatinine 0.6 L (0.70-1.30) mg/dL Est GFR (CKD-EPI 2020) 123.60 (mL/min/1.73m2) Glucose 97 (74-106) mg/dL Calcium 8.0 L (8.5-10.1) mg/dL Total Bilirubin 0.5 (0.2-1.0) mg/dL AST 84 H (15-37) U/L ALT 28 (16-63) U/L Alkaline Phosphatase 52 (46-116) U/L Creatine Kinase 1185 H 3118 H (39-308) U/L Total Protein 6.2 L (6.4-8.2) g/dL Albumin 2.5 L (3.4-5.0) g/dL 08/19/24 01:30 Blood Culture - Final Blood NO GROWTH 120 HOURS 08/19/24 01:45 Blood Culture - Final Blood NO GROWTH 120 HOURS [id number] Documentation Fingerstick Glucose Start: 08/18/24 21:42 Freq: Status: Complete Protocol: Activity Type Activity Date Activity User E-sign Co-sign Detail Recorded Client Recorded Date Recorded By Document 08/18/24 21:35 BKG DAEMON(10) NVT-BG05 08/18/24 21:42 BKG DAEMON(10) Fingerstick Glucose Start: 08/18/24 23:02 Freq: .Q6H Status: Complete Protocol: Activity Type Activity Date Activity User E-sign Co-sign Detail Recorded Client Recorded Date Recorded By Document 08/23/24 17:43 BKG DAEMON(10) NVT-BG05 08/23/24 17:43 BKG DAEMON(10) Fingerstick Glucose Start: 08/24/24 08:01 Freq: Status: Active Protocol: Activity Type Activity Date Activity User E-sign Co-sign Detail Recorded Client Recorded Date Recorded By Document 08/24/24 07:59 BKG DAEMON(10) NVT-BG05 08/24/24 08:01 BKG DAEMON(10) Intake and Output - 24 Hour Total 08/18/24 03:35 thru 08/24/24 16:07 Intake Total 38205.322 Output Total 38181 Balance 80629.322 Weight 69.5 kg Intake: [place] 58173.322 Oral 1050 Output: Gastric Drainage 1550 Oral 1550 Urine 8530 Other: Urine Color Dark Gurinder Urine Appearance Clear Urine Odor None Comment pt reported urinating twice overnight but urine was dumped before being observed by a nurse, pt reported dark gurinder in color Stool Size Moderate Stool Characteristics Soft Liquid Brown Urinary Catheter Urinary Catheter Date of 08/18/24 Insertion [Urethral (Woo)] Time of insertion [Urethral ( 04:02 Woo)] Falls Risk Assessment History of Falls Previous History 08/18/24 07:00 Contributing Factors Confusion,Unstable, 08/18/24 07:00 Impairments,Medications Ambulatory Aids Independent 08/18/24 07:00 Tubes/Lines With any additional score 08/18/24 07:00 Gait Evaluation W/any additional score 08/18/24 07:00 Cognition Cognitive impairment 08/18/24 07:00 Fall Total Score 82 08/18/24 07:00 Level of Risk Maximum Risk 08/18/24 07:00 Restraint Information Behavior Requiring Restraints/ Harm to Patient Seclusion Date of Initiation 08/18/24 Time Restraints were Initiated 04:19 Note Pt laying in bed passively. Affect is flat and withdrawn but he does not appear agitated and seems unlikely to be a danger to himself or others at this time. Per reporting RN restraints have been off for a few hours at this point without incident. Criteria for Restraint Removal No longer threat to self,Behavior Change Date Restraints Removed 08/23/24 Time Restraints Removed 17:30 Was Restraint Order Yes Discontinued Problems (Last Reviewed 08/11/18 @ 16:32 by Renetta Mae DO) Dystonic movements (Acute) Agitation (Acute) Hypomagnesemia (Acute) Pneumonia (Acute) Fever (Acute) Opioid dependence on agonist therapy (Acute) DVT prophylaxis (Acute) Hypokalemia (Acute) Thrombocytopenia (Chronic) Lactic acidosis (Acute) Overdose (Acute) Notes 08/19/24 10:04 Respiratory by Rochelle Barton 08/19/24 Asked by RN to assess pt; pt slightly agitated. Per RN there was a short few minute interruption in sedation medications due to complications and patient became agitated. This RT oral suctioned for a small amount of secretions and in-line suctioned for no secretions. ETT at 23cm at the teeth. Pt sedation meds continued and patient began to settle down and looks comfortable on current settings. Pt SPO2 93%, RR 21, and HR 57. Initialized on 08/19/24 10:04 - END OF NOTE 08/19/24 03:30 Respiratory by Christianne Sherman Pt received on vc/ac tolerating settings well wno complications. T/o the night pt had increasing secretions via ett with a strong cough.0200 Called to pt's room to evaluate need for sx and vent as pt was looking uncomfortable and was tachypneic. Shortly after arrival to the room pt was coughing up large amounts of cloudy yellow sputum and vent was alarming for high rr and high pip. Pt was waking up and trying to sit up, gagging on ett. RN gave boluses w/short term relief to pt calming down. After multiple boluses pt is resting in bed but still dyssynchronous with the vent, pip in the 30's, and pt looked generaly uncomfortable with his breathing. Pt changed to asv and immediately looks more comfortable. RR decreased, pip decreased, pt tolerated change well. -Will continue to monitor. Initialized on 08/19/24 03:30 - END OF NOTE v v v v v v v v v Sending and/or Receiving Nurses: Please use comment section below to note any information pertinent to the patient hand-off not included above. Information / Comments: Report received and all questions answered. Report received from: Camille Younger/ RODRIGUE Oliva @ [phone]
--- NOTE | 2024-08-24 16:25 | PTTR_ITS ---
PT Notes Visit Reasons: Unintentional Overdose Inpatient Physical Therapy Treatment Note [facility] Date: 08/24/2024 PRECAUTIONS: Ankle cuffs with chain to bed , IV access BUE telemetry in place SUBJECTIVE: Patient reported feeling cold and stated he slept a few hours. OBJECTIVE: Patient presented supine in bed with ankle cuffs and chain to to bed with Apparel Stock Checker in room providing one-to-one. Patient no longer in wrist restraints. Telemetry in place IV infusing left upper extremity. Nurse paused IV infusion for ambulation. ? PAIN: Denied VITALS: ?Monitored via telemetry throughout Therapeutic Activities ([id number][]): Direct one-on-one instruction in dynamic activities to improve functional performance. ?? Minimal cueing provided throughout for posture, safety, FWW management, pacing Bed mobility independent Transfers sit to stand contact-guard surfaces from 17 inches to 22 inches height Step turn transfers without assistive device standby assist once standing Facilitated safe and correct performance of level surface ambulation covering a distance of 60 feet using use front wheeled walker with contact-guard assist . Did not report of any increased pain. Denied headache, chest pain throughout activity. minimal verbal cueing provided for AD management, directional changes, and posture. ?- Facilitated safe and correct performance of level surface ambulation covering a distance of 50 feet without assistive device with contact-guard assist . Did not report of any increased pain. Denied headache, chest pain, and lightheadedness throughout activity. Patient noted 2 episodes of flashing lights sensation. Minimal verbal cueing provided for AD management, directional changes, and posture.? ? ? ASSESSMENT: Patient tolerated session well able to ambulate with and without assistive device with contact-guard assist. Patient limited by 2 episodes of light flashes in his eyes which he reports scares him. Patient requested use of FWW for stability. Patient gait limited by ankle cuffs and chain restricting step length and base of support. Anticipate patient to return to facility without further PT needs when medically appropriate if able to progress with ambulation without device. Patient continues to benefit from PT while inpatient. PLAN: 1-2x/day, 7 days/week x 1 week. Plan of care has been reviewed with the RN ENDOCRINOLOGY providing the service under Physical Therapy direction. Initiate Physical Therapy intervention for strengthening, bed mobility, transfers, gait, stairs, balance training, use of assistive device. TREATMENT CODE/TIME: 05181/1415?1449 DISCHARGE RECOMMENDATION: Return to facility when medically appropriate uncertain if need for assistive device
[2024-08-24] MEDS: Ondansetron O.D.T. 4 MG TABEF PO (20:15)
[2024-08-25 03:23] VITALS: BP 147/92; PULSE 47; RESP 18; TEMP 37; O2SAT 95
[2024-08-25] MEDS: cloNIDine 0.1 MG TAB PO ×2 (03:59→11:51)
[2024-08-25] MEDS: Normal Saline 1,000 ML 150 ML IV (06:03)
[2024-08-25 07:10] VITALS: BP 154/100; PULSE 44; RESP 12; TEMP 36.8; O2SAT 96
[2024-08-25 07:32] LABS: HGB 10.6 g/dL (13.5-17.5); MCHC 33.1 % (32.0-36.0); MCV 81 fL (80-95); MPV 11.3 fL (8.0-11.0); Platelet Count 206 10^3/uL (130-400); RBC 3.93 10^6/uL (4.36-5.78); RDW 15.9 % (11.8-14.1); WBC 9.95 10^3/uL (4.4-10.8)
[2024-08-25] MEDS: Magnesium Oxide 400 MG TAB PO (07:33)
[2024-08-25] MEDS: Thiamine 100 MG TAB PO (07:33)
[2024-08-25] MEDS: Potassium Chloride 20 MEQ TABCR 40 MEQ PO (07:33)
[2024-08-25] MEDS: Enoxaparin 40 MG/0.4 ML SYR SC (07:33)
[2024-08-25] MEDS: Normal Saline Flush 10 ML SYR IVP (07:34)
[2024-08-25 07:56] LABS: ALT 26 U/L (16-63); AST 46 U/L (15-37); Albumin 2.4 g/dL (3.4-5.0); Alkaline Phosphatase 49 U/L (46-116); Anion Gap 9.8 mmol/L (3-11); BUN 11 mg/dL (7-18); Bilirubin, Total 0.4 mg/dL (0.2-1.0); CO2 22.2 mmol/L (21.0-32.0); CREATININE 0.6 mg/dL (0.70-1.30); Calcium 7.7 mg/dL (8.5-10.1); Chloride 110 mmol/L (98-107); Creatine Kinase 459 U/L (39-308); Glucose 129 mg/dL (74-106); Magnesium 1.8 mg/dL (1.8-2.4); Potassium 3.3 mmol/L (3.5-5.1); Sodium 142 mmol/L (136-145); Total Protein 6.2 g/dL (6.4-8.2)
[2024-08-25 11:17] VITALS: BP 181/99; PULSE 41; RESP 12; TEMP 37
[2024-08-25 11:51] VITALS: BP 167/98
--- NOTE | 2024-08-25 11:57 | PTTR_ITS ---
PT Notes Visit Reasons: Unintentional Overdose Inpatient Physical Therapy Treatment Note [facility] Date: 08/25/24 SUBJECTIVE: Best peace returning from shower. States that he had an episode of his lights going out. No one seems to be able to explain what is happening. OBJECTIVE: []? VITALS: ?monitored by nsg. Therapeutic Activities ([id number]): Direct one-on-one instruction in dynamic activities to improve functional performance. ? BED MOBILITY/TRANSFERS? seated on EOB.? Sit-stand: S? Stand-sit:S? GAIT? Assistive Device: FWW ? Weight bearing: full Assist: SBA ? Distance:? approx 250'? Deviation: ankle cuffs? ASSESSMENT:?no LOB or fatigue noted. No c/o of his lights going out No lighth eadedness PLAN: pt d/c. Returning to [facility] facility. TREATMENT CODE/TIME: 12 min [id number]
--- NOTE | 2024-08-25 12:10 | CMDISCH_ITS ---
Date of service: 08/25/24 Time of Service: 12:10 LACE Index Scoring Tool Questions: Length of Stay (in days): 7 - 13 Was the patient admitted via the E.D.?: Yes E.D. Visits: 1 Answers: Total Score: 9 Risk of Readmission: Low Risk Care Management Discharge Plan Reason for Hospitalization: Overdose Discharge Plan: Best is medically ready for discharge and was discharged back to [facility] via facility transport. Pt will follow up with community/facility providers and his discharge plan of care as directed. Patient/Family Education Needs: Review discharge instructions and plan to follow up in the community. Review ask me three. SDOH Health Related Social Needs: No Data to Display
--- NOTE | 2024-08-25 12:27 | W.PM.DS.N ---
Date of service: 08/25/24 Time of Service: 12:27 DS: Diagnosis Discharge Diagnosis (1) Dystonic movements: Status: Acute (2) Overdose: Status: Acute (3) Pneumonia: Status: Acute (4) Thrombocytopenia: Status: Chronic (5) Hypokalemia: Status: Acute (6) Opioid dependence on agonist therapy: Status: Acute (7) DVT prophylaxis: Status: Acute (8) Agitation: Status: Acute Discharge Plan Disposition Patient Disposition: [facility] Condition: Stable Discharge Details Reason For Visit: Unintentional Overdose Admit Date/Time: 08/18/24 05:52 Admit Provider: Epi Beck Attending Provider: Epi Beck Primary Care Provider: Amirah Vazquez Hospital Course Hospital Course: This is a 44-year-old gentleman who was admitted to the hospital on August 18 for intentional ingestion of cocaine and fentanyl. Initially the patient was intubated for airway protection but on the admission was extubated. Unfortunately, on the same day the patient started having dystonic reactions to what is thought to be Haldol. I did discuss the case with neurology who recommended Benadryl which improved his symptomology is greatly. While he is in the hospital he was noted to have elevated CKs indicative of rhabdo with the original numbers being in the 3000 the time of discharge it was less than 500. While he is in the hospital he was also diagnosed and treated for pneumonia and his antibiotic course is completed. He was also noted to have bradycardia but was asymptomatic. Patient will be discharged back to the long term. I will send over prescription for Benadryl for another 7 days. 44-year-old male with past medical history of hepatitis C and IV drug use with methadone use was brought into the emergency department for unintentional overdose. Information in this documentation was obtained from the emergency room providers note as patient was intubated and sedated at the time of evaluation. According to nursing home guards patient was being brought in for intake and during full body scan he was noted as having had packed some object in his rectum. He was put in isolation room and shortly after was found eating chewing one of the components of the body packing which broke and caused his mouth to bleed. He then told nursing home officials that substances were fentanyl and cocaine and patient immediately became unresponsive and had was described as atypical movements. EMS was called upon their arrival the patient was unresponsive with fixed dilated pupils, they were unable to gain IV access and patient was brought immediately to the emergency department. Upon arrival to the emergency department patient was obtunded and immediately endotracheally intubated. He was noted as being cyanotic, with twitching and jerking movements with his clenched jaw and blood in his mouth. He was also noted as having not circular right pupil was slightly oblong lateral component concern for toxic overdose, brain bleed or toxic metabolic encephalopathy. Shortly after intubation patient's mouth was suctioned and no foreign bodies were noted, but postintubation patient was hypotensive and was briefly on Levophed with improvement of his mean arterial pressure so Levophed was discontinued. Patient was also given fluid bolus, total of 3 L while in the emergency department. Additionally, art line and central line were also placed. Patient was put on propofol and Versed for sedation. CT chest abdomen pelvis and head were all performed, showing radio nodular densities in the lungs consider infectious, inflammatory processes, with head CT showing no acute intracranial abnormalities. Patient's ABG performed post intubation showed pH of 7.32, CO2 of 42 and PO2 of 85. Initial, patient's initial lactic was 15 with repeat pending. At which time emergency room physician paged hospitalist for admission for patient with unintentional overdose of fentanyl and cocaine currently intubated. (1) Overdose: Status: Acute Assessment and plan: - As noted in HPI, patient was in the process of nursing home intake when he was scanned with a foreign body noted in his rectum which he was put in isolation, promptly ingested said object, and just before becoming unresponsive stated that it was fentanyl and cocaine - Patient was found down upon EMSs arrival, and patient was not intubated until brought to the emergency department - Postintubation ABG without abnormalities, continue current vent settings - Continue propofol and Versed for sedation - Asymmetric pupil findings concerning for anoxic brain injury, will need further evaluation - Given patient was just intubated, recommend spontaneous breathing trial begin tomorrow morning 08/19/2024 (2) Lactic acidosis: Status: Acute Assessment and plan: - Likely secondary to potentially observed seizure activity when patient first ingested substances in combination with downtime leading up to patient being intubated - Initial lactic about 15 - Status post total 3 L fluid bolus in the emergency department - Follow-up repeat lactic acid CT head 08/21/24 IMPRESSION: No acute intracranial findings on this noninfused CT scan of the brain. If clinically indicated follow-up MRI can be performed for added sensitivity and specificity. Paranasal sinus disease but no associated fluid levels. echo 08/19/24 Conclusion Normal left ventricular wall thickness and chamber size. Ejection fraction is 58%. Wall motion is normal Normal right ventricular size and function Both atria are normal in size There is no structural or hemodynamically significant valvular disease Home Meds and New Rx's Prescriptions: New potassium chloride [Klor-Con M20] 20 mEq Tablet,Er Particles/Crystals 20 meq PO BID@0800,1700 Qty: 20 0RF diphenhydramine HCl [Benadryl] 25 mg capsule 25 mg PO BID 7 Days Qty: 14 0RF Continued methadone 5 mg/5 mL Solution 125 mg PO DAILY AM gabapentin 600 mg Tablet 600 mg PO DAILY Rx Instructions: pt states that he took a handful of gabapentin today because other cornelius he feels sick. he denies suicide ideastion or attempt Discharge Instructions Activity:: Activity as Tolerated Equipment/Supplies:: No Equipment Needed Diet:: As Tolerated Discharge Orders Discharge Orders: Discharge Order (Routine); Ordered 08/25/24 Ordered By: Tobias Bishop DS: Summary Time Spent with Patient providing and/or coordinating discharge services: Greater than 30 minutes Status at Discharge Functional status at discharge: independent ambulation Overall status at discharge: patient is progressing back to baseline Mental Status: mental status grossly normal Speech and Movement: speech and movement normal Mood: congruent mood Affect: normal affect Quality:SDOH Health Related Social Needs: No Data to Display Exam Narrative Exam Narrative: Chronically ill-appearing disheveled gentleman sitting up in bed, alert but not oriented. soft restraints off in BUE, cuffs in BLE Head atraumatic other than minor skin wounds, pupils ~3 mm and reactive dhara. heart regular rhythm, no murmur, lungs clear to auscultation bilaterally, abdomen soft, nondistended. extremities without edema or cyanosis, warm. RLQ ecchymotic region Psych Mental Status: mental status grossly normal Speech and Movement: speech and movement normal Mood: congruent mood Affect: normal affect DS: Data Vitals/I&O Vitals and I&O: Vital Signs Temperature 37.0 C 08/25/24 11:17 Temperature Source Tympanic 08/25/24 11:17 Pulse 41 L 08/25/24 11:17 Pulse 48 L 08/24/24 14:40 Respiratory Rate 12 08/25/24 11:17 Respiratory Effort Mechanically Ventilated 08/21/24 07:30 Respiratory Depth Normal 08/18/24 07:00 Respiratory Pattern Normal 08/18/24 07:00 Blood Pressure 167/98 H 08/25/24 11:51 Blood Pressure Mean 121 08/25/24 11:51 Blood Pressure Position Supine 08/18/24 03:57 Pulse Oximetry 96 08/25/24 07:10 Respiratory End-tidal CO2 32 08/21/24 08:56 Oxygen Delivery Method Room Air 08/25/24 11:17 Oxygen Flow Rate 0 08/25/24 11:17 Fraction of Inspired Oxygen (FIO2) 30 08/21/24 08:56 End Tidal Co2 15 08/18/24 03:57 Pain Level 6 08/25/24 11:17 Comment stomach pain 08/24/24 20:04 Arterial Systolic 167 08/21/24 22:30 Arterial Diastolic 112 08/21/24 22:30 Arterial Mean 139 08/21/24 22:30 Intake & Output 08/24/24 08/25/24 08/25/24 23:59 11:59 23:59 Intake Total 2700 / 4880 1462.5 / 1462.5 Output Total 300 / 300 Balance 2400 / 4580 1462.5 / 1462.5 Intake: IV 2100 / 4280 1462.5 / 1462.5 Oral 600 / 600 Output: Urine 300 / 300 Other: Urine Color Dark Veronica Urine Appearance Clear Urine Odor None Comment pt voids w assistance from residue furnace operator, no issues reported Stool Size Moderate Moderate Stool Characteristics Soft Liquid Liquid Brown Data Completed and Pending Labs on day of discharge: Labs from last 24 hours 08/25/24 07:01 WBC 9.95 RBC 3.93 L Hgb 10.6 L Hct 32.0 L MCV 81 MCH 27.0 MCHC 33.1 RDW 15.9 H Plt Count 206 MPV 11.3 H Sodium 142 Potassium 3.3 L Chloride 110 H Carbon Dioxide 22.2 Anion Gap 9.8 BUN 11 Creatinine 0.6 L Est GFR (CKD-EPI 2020) 123.60 Glucose 129 H Calcium 7.7 L Magnesium 1.8 Total Bilirubin 0.4 AST 46 H ALT 26 Alkaline Phosphatase 49 Creatine Kinase 459 H Total Protein 6.2 L Albumin 2.4 L PFSH All Active Problems (Updated 08/25/24 @ 12:27 by Tobias Bishop MD) Dystonic movements (Acute) Agitation (Acute) Hypomagnesemia (Acute) Pneumonia (Acute) Fever (Acute) Opioid dependence on agonist therapy (Acute) Polysubstance abuse (Acute) DVT prophylaxis (Acute) Hypokalemia (Acute) Thrombocytopenia (Chronic) Lactic acidosis (Acute) Overdose (Acute) Medical History (Updated 08/25/24 @ 12:27 by Tobias Bishop MD) Seizure first time last month Surgical History (Updated 08/11/18 @ 16:34 by Renetta Mae DO) History of surgery on extremity L leg ORIF Social History Smoking/Tobacco Use Status: Current every day Smoking risk assessment performed?: Yes Alcohol Intake: former Details: Last use 8 months ago Substance use type: former substance user, crack/cocaine, heroin and IV drugs Details: last use 2016 Time Spent with Patient Time Spent with Patient: 45-69 minutes Time was spent: preparing to see the patient(eg.review tests), obtaining and/or reviewing separately otained hiistory, ordering medications,tests, procedures, referring, communicating with other health pet caretaker, indepentently interpreting results, counseling the patient and care coordination
== END 2024-08-25 13:45 | DRG 917 ==
LOC: ER 06:21 → ICU 06:52 → MS 08-24 15:31
PROVIDERS: Family Medicine; Admitting Provider Family Medicine; Emergency Provider Student in an Organized Health Care Education/Training Program; PCP Nurse Practitioner Adult Health; Responsible Provider Hospitalist; Visit Provider Family Medicine
DX: T40.411A Poisoning by fentanyl or fentanyl analogs, accidental (unintentional), initial encounter (principal); J18.9 Pneumonia, unspecified organism; R57.8 Other shock; F11.20 Opioid dependence, uncomplicated; E87.21 Acute metabolic acidosis; M62.82 Rhabdomyolysis; R50.9 Fever, unspecified; D69.6 Thrombocytopenia, unspecified; E87.6 Hypokalemia; E83.42 Hypomagnesemia; R45.1 Restlessness and agitation; B19.20 Unspecified viral hepatitis C without hepatic coma; T40.5X1A Poisoning by cocaine, accidental (unintentional), initial encounter; Y92.148 Other place in prison as the place of occurrence of the external cause; F17.210 Nicotine dependence, cigarettes, uncomplicated; F19.10 Other psychoactive substance abuse, uncomplicated; R56.9 Unspecified convulsions; R91.8 Other nonspecific abnormal finding of lung field; Z78.1 Physical restraint status; R25.8 Other abnormal involuntary movements; T43.4X5A Adverse effect of butyrophenone and thiothixene neuroleptics, initial encounter; R00.1 Bradycardia, unspecified; H57.02 Anisocoria
CPT/HCPCS: 00123; 31500; 36415; 36556; 36592; 51702; 71045; 74177; 76937; 80048; 80053; 80076; 80307; 80354; 82550; 82805; 84145; 85027; 87040; 87389; 87641; 93005; 96365; 96366; 97162; 97530; 99291; J1650; 36600; 70450; 71260; 80202; 80320; 80329; 81003; 82607; 83605; 83615; 83735; 83880; 84439; 84443; 84484; 85025; 85610; 85730; 93010; 93306; 94002; 94003; 94667; 94760; 99223; 99231; 99233; 99239; J0131; J0295; J1200; J1630; J2060; J2470; J2543; J2704; J3010; J3370; J3372; J3475; J3480; J3490